=== PATIENT | female | born 1980 | race Hispanic/Latino ===

== ENCOUNTER 2020-03-26 18:12 | Emergency (ER) | payer OTHER ==
--- OUTSIDE RECORDS SUMMARY | 2020-03-26 18:15 | XMS REPORT ---
:1980 Author Organization [facility] t Address [address] [place] [address] Care Team Providers Name Role Phone GENERAL Attending Clinician Unavailable Problems Condition Condition Condition Status Onset Resolution Last Treating Co mments Source Name Details Category Date Date Treatment Clinician Date S/P S/P Problem Active [facility] laparoscop laparoscop [id number] ity of ic ic [place] appendecto appendecto Ph ysici my my ans Allergies, Adverse Reactions, Alerts This patient has no known allergies or adverse reactions. Social History Smoking Status Start Date Stop Date Source Never smoker [facility] Medications This patient has no known medications. Vital Signs Vital Name Observation Time Observation Value Comments Source BP Systolic 2018-10-23 14:04:00 105 mm[Hg] [facility] Physician s BP Diastolic 2018-10-23 14:04:00 75 mm[Hg] [facility] Physician s Height 2018-10-23 14:04:00 65 [in_us] [facility] Physician s Weight 2018-10-23 14:04:00 147 [lb_av] [facility] Physician s Body Mass Index 2018-10-23 14:04:00 24.46 kg/m2 Unive rsity of Calculated [place] Physician s Temperature 2018-10-23 14:04:00 98.2 [degF] [facility] Physician s Heart Rate 2018-10-23 14:04:00 81 /min [facility] Physician s Procedures This patient has no known procedures. Encounters Start End Encounter Admission Attending Care Care Encounter Source Date/Time Date/Time Type Type Clinicians Facility Department ID 2019-04-07 2019-04-07 Emergency E [facility] [address] [facility] 13:34:00 13:34:00 2018-10-23 2018-10-23 Appointmen GENERAL, UTP General [id number] 91 Univers 14:00:00 14:00:00 t; SERVICE Surgery ity of [place], [place] SERVICE Physici ans Results This patient has no known results.
--- NOTE | 2020-03-26 22:02 | RAD REPORT ---
EXAM DESCRIPTION: CT - Head Brain Wo Cont - 03/26/2020 9:56 pm CLINICAL HISTORY: HEADACHE Headache, drowsiness COMPARISON: No comparisons TECHNIQUE: All CT scans are performed using dose optimization technique as appropriate and may inclu de automated exposure control or mA/KV adjustment according to patient size. FINDINGS: No intracranial hemorrhage, hydrocephalus or extra-axial fluid collection.No areas of brai n edema or evidence of midline shift. The paranasal sinuses and mastoids are clear. The calvarium is intact. IMPRESSION: No acute intracranial abnormality.
[2020-03-26] MEDS ORDERED: MORPHINE 4 MG/ML SYR ONE (22:03)
[2020-03-26] MEDS ORDERED: ONDANSETRON 4 MG (ODT) TAB ONE (22:04)
[2020-03-26] MEDS ORDERED: LIDOCAINE VISCOUS 2% SOLN 15 ML UDC ONE (22:32)
--- NOTE | 2020-03-26 23:19 | ER ---
Nurse's Notes [facility] Name: Kelly Phelps Age: 39 yrs Sex: Female : 1980 Arrival Date: 03/26/2020 Time: 18:15 Bed 17 Private MD: Diagnosis: Scalp Mass Presentation: 03/26 18:27 Chief complaint: Patient states: Bump to left scalp area for 4 years. States it got ll1 painful and tender yesterday. No fever. No drainage. Coronavirus screen: Proceed with normal triage. Patient denies a cough. Patient denies shortness of breath or difficulty breathing. Patient denies measured and/or subjective temperature greater than 100.4F prior to today's visit. Patient denies travel on a cruise ship or to a country the [facility] currently lists as an affected area. Patient denies contact with known and/or suspected case of COVID-19. Ebola Screen: Patient denies travel to an Ebola-affected area in the 21 days before illness onset. Initial Sepsis Screen: Does the patient meet any 2 criteria? No. Patient's initial sepsis screen is negative. Does the patient have a suspected source of infection? No. Patient's initial sepsis screen is negative. Risk Assessment: Do you want to hurt yourself or someone else? Patient reports no desire to harm self or others. Onset of symptoms was March 25, 2020. 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 - Social history:: Smoking status: Patient denies any tobacco usage or history of. Patient/guardian denies using alcohol, street drugs, tobacco products. Screenin:36 Abuse screen: Denies threats or abuse. Nutritional screening: No deficits noted. ll1 Tuberculosis screening: No symptoms or risk factors identified. Fall Risk None identified. Total Nayak Fall Scale indicates No Risk (0-24 pts). Assessment: 22:34 General: Appears uncomfortable, Behavior is calm, cooperative. Pain: Complains of pain ll1 in scalp Pain Quality of pain is described as aching, throbbing, Pain began 2-3 days ago. Is continuous. Neuro: No deficits noted. Cardiovascular: No deficits noted. Respiratory: No deficits noted. GI: No deficits noted. Derm: Abscess located on left scalp is dime sized, has no drainage, is red, is raised, Reports pain that is 8 out of 10 on a pain scale. 23:34 Reassessment: Patient appears in no apparent distress at this time. No changes from 1 previously documented assessment. Patient and/or family updated on plan of care and expected duration. Pain level reassessed. Patient is alert, oriented x 3, equal unlabored respirations, skin warm/dry/pink. Vital Signs: 18:27 BP 123 / 85; Pulse 76; Resp 17; Temp 98.8; Pulse Ox 98% ; Weight 68.04 kg; Height 5 ft. ll1 6 in. (167.64 cm); Pain 10/10; 23:34 BP 103 / 64; Pulse 71; Resp 17; Pulse Ox 100% ; Pain 5/10; ll1 18:27 Body Mass Index 24.21 (68.04 kg, 167.64 cm) ll1 ED Course: 18:15 Patient arrived in ED. fj1 18:29 Triage completed. ll1 18:30 Arm band placed on Patient notified of wait time. ll1 21:09 Grover Caballero PA is PHCP. jmm 21:09 Donald Ulloa MD is Attending Physician. jmm 21:55 CT completed. Patient tolerated procedure well. Patient moved back from CT. mw3 21:56 CT Head Brain wo Cont In Process Unspecified. EDMS 22:10 Report received from Yady Villatoro. ll1 22:26 Glenis Brooks, RAYSHAWN is Primary Nurse. ll1 22:36 Patient has correct armband on for positive identification. Bed in low position. Call 1 light in reach. Side rails up X 1. 23:35 No provider procedures requiring assistance completed. Patient did not have IV access ll1 during this emergency room visit. Administered Medications: 22:02 Drug: morphine 4 mg {Note: RASS 1.} Route: IM; Site: left ventrogluteal; 22:32 Follow up: Response: No adverse reaction; RASS: Alert and Calm (0) ll1 22:02 Drug: Ondansetron (Zofran) 4 mg Route: PO; 22:32 Follow up: Response: No adverse reaction; RASS: Alert and Calm (0) [facility] 22:31 Drug: Viscous Lidocaine Liquid (4 %) 10 ml {Note: Applied to scalp wound..} Route: ll1 Mucous Membrane; 23:08 Follow up: Response: No adverse reaction; RASS: Alert and Calm (0) 1 Outcome: 23:18 Discharge ordered by . kory 23:35 Discharged to home via wheelchair, with family. 1 23:35 Condition: stable 23:35 Discharge instructions given to patient, Instructed on discharge instructions, follow up and referral plans. no drinking with medication, no driving heavy equipment, medication usage, Demonstrated understanding of instructions, follow-up care, medications, Prescriptions given X 1. 23:36 Patient left the ED. 1 Signatures: Dispatcher [employer] EDMS Grover Caballero PA PA jmm Willis, Michelle mw3 Garrett Love fj1 Yady Villatoro RN RN ah Lewis, Lynsay, RN RN [facility] Corrections: (The following items were deleted from the chart) 23:09 22:34 Report received from Yady Villatoro [place] [id number]
--- NOTE | 2020-03-26 23:19 | EDPHYS ---
Physician Documentation [facility] Name: Kelly Phelps Age: 39 yrs Sex: Female : 1980 Arrival Date: 03/26/2020 Time: 18:15 Bed 17 Private MD: ED Physician Donald Ulloa HPI: 03/26 21:19 This 39 yrs old Female presents to ER via Ambulatory with complaints of jmm PAINFUL LUMP ON HEAD, DISORIENTED. 21:19 Onset: The symptoms/episode began/occurred gradually, 5 year(s) ago. Possible cause(s): jmm unknown. This is a 39 year old female with a history of RA that presents to the ED with complaints of scalp pain and swelling worsening over the past 3 days. Patient states she has had a mass on her scalp for approx 5 years. Denies drainage, discharge or fever. . 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 - Social history:: Smoking status: Patient denies any tobacco usage or history of. Patient/guardian denies using alcohol, street drugs, tobacco products. ROS: 21:19 Constitutional: Negative for fever, chills, and weight loss, Cardiovascular: Negative jmm for chest pain, palpitations, and edema, Respiratory: Negative for shortness of breath, cough, wheezing, and pleuritic chest pain, Abdomen/GI: Negative for abdominal pain, nausea, vomiting, diarrhea, and constipation. 21:19 Skin: Positive for swelling. 21:19 All other systems are negative. Exam: 21:19 Constitutional: This is a well developed, well nourished patient who is awake, alert, jmm and in no acute distress. 21:19 Eyes: EOMI, no conjunctival erythema appreciated ENT: Moist Mucus Membranes Neck: Trachea midline, Supple Chest/axilla: Normal chest wall appearance and motion. Cardiovascular: Regular rate and rhythm. No edema appreciated Respiratory: Normal respirations, no respiratory distress appreciated Abdomen/GI: Non distended, soft Back: Normal ROM Skin: General appearance color normal MS/ Extremity: Moves all extremities, no obvious deformities appreciated, no edema noted to the lower extremities Neuro: Awake and alert, normal gait Psych: Behavior is normal, Mood is normal, Patient is cooperative and pleasant 21:19 Head/face: cyst like mass noted to the left side of the scalp, no erythema or drainage appreciated, ttp. Vital Signs: 18:27 BP 123 / 85; Pulse 76; Resp 17; Temp 98.8; Pulse Ox 98% ; Weight 68.04 kg; Height 5 ft. ll1 6 in. (167.64 cm); Pain 10/10; 23:34 BP 103 / 64; Pulse 71; Resp 17; Pulse Ox 100% ; Pain 5/10; ll1 18:27 Body Mass Index 24.21 (68.04 kg, 167.64 cm) ll1 MDM: 21:19 Patient medically screened. mike 23:17 Data reviewed: vital signs, nurses notes. Counseling: I had a detailed discussion with kory the patient and/or guardian regarding: the historical points, exam findings, and any diagnostic results supporting the discharge/admit diagnosis, the need for outpatient follow up, to return to the emergency department if symptoms worsen or persist or if there are any questions or concerns that arise at home. ED course: Most likely cyst. Advised to follow up with dr. navarro for reevaluation. patient is otherwise given strict return precautions. patient understood and agrees with the plan of care. . 03/26 21:44 Order name: CT Head Brain wo Cont; Complete Time: 22:07 mckenzie Administered Medications: 22:02 Drug: morphine 4 mg {Note: RASS 1.} Route: IM; Site: left ventrogluteal; 22:32 Follow up: Response: No adverse reaction; RASS: Alert and Calm (0) 1 22:02 Drug: Ondansetron (Zofran) 4 mg Route: PO; 22:32 Follow up: Response: No adverse reaction; RASS: Alert and Calm (0) 1 22:31 Drug: Viscous Lidocaine Liquid (4 %) 10 ml {Note: Applied to scalp wound..} Route: ll1 Mucous Membrane; 23:08 Follow up: Response: No adverse reaction; RASS: Alert and Calm (0) ll1 Disposition: 03/27 07:41 Co-signature as Attending Physician, Donald Ulloa MD I agree with the assessment and [facility] plan of care. Disposition: 03/26/20 23:18 Discharged to Home. Impression: Scalp Mass. - Condition is Stable. - Prescriptions for Tylenol- Codeine #3 300-30 mg Oral Tablet - take 1 tablet by ORAL route every 6 hours As needed; 12 tablet. - Medication Reconciliation Form, Thank You Letter, Antibiotic Education, Prescription Opioid Use form. - Follow up: Private Physician; When: 2 - 3 days; Reason: Recheck today's complaints, Continuance of care, Re-evaluation by your physician. Signatures: Dispatcher [employer] EDDonald Balderas MD MD cha Mickail, Joel, PA PA jmm Harris, Amy, RN RN Glenis Todd RN RN ll1 Corrections: (The following items were deleted from the chart) 03/26 23:36 23:18 03/26/2020 23:18 Discharged to Home. Impression: Scalp Mass. Condition is Stable. ll1 Forms are Medication Reconciliation Form, Thank You Letter, Antibiotic Education, Prescription Opioid Use. Follow up: Private Physician; When: 2 - 3 days; Reason: Recheck today's complaints, Continuance of care, Re-evaluation by your physician. kory
[2020-03-26 23:46] VITALS: TEMP 98.8
[2020-03-26 23:51] VITALS: BP 103/64; O2SAT 100
== END 2020-03-26 23:36 | disposition home or self-care (01) ==
LOC: ER 18:12
DX: R22.0 Localized swelling, mass and lump, head (principal); Z98.82 Breast implant status
CPT/HCPCS: 70450; 96372; 99284

== ENCOUNTER 2020-04-01 11:16 | Day surgery (SDC) | payer OTHER ==
[2020-03-30 16:19] LABS: Absolute Lymphocytes (CBC) 1.7 K/uL (0.7-4.9); Basophils % 0.4 % (0-1.3); Hematocrit 35.5 % (36.0-45.0); Lymphocytes % 29.5 % (15.3-44.8); MPV 9.6 fL (7.6-11.3); RBC Red Blood Cell Count 3.74 M/uL (3.86-4.86)
[2020-04-01] MEDS ORDERED: CEFAZOLIN/SWI 1gm 1 GM/10 ML SYR ONE (11:43)
[2020-04-01] MEDS ORDERED: Ringers Lactate 1,000 ML IV ONE (11:43)
--- OUTSIDE RECORDS SUMMARY | 2020-04-01 11:47 | XMS REPORT ---
:1980 Author Organization [facility] t Address [address] [place] [address] Care Team Providers Name Role Phone GENERAL Attending Clinician Unavailable Problems Condition Condition Condition Status Onset Resolution Last Treating Co mments Source Name Details Category Date Date Treatment Clinician Date S/P S/P Problem Active [facility] laparoscop laparoscop [id number] ity of ic ic [place] appendecto appendecto Ph ysici my my ans Allergies, Adverse Reactions, Alerts This patient has no known allergies or adverse reactions. Social History Smoking Status Start Date Stop Date Source Never smoker [facility] Medications This patient has no known medications. Vital Signs Vital Name Observation Time Observation Value Comments Source BP Systolic 2018-10-23 14:04:00 105 mm[Hg[facility] BP Diastolic 2018-10-23 14:04:00 75 mm[Hg] [facility] Physician s Height 2018-10-23 14:04:00 65 [in_us] [facility] Weight 2018-10-23 14:04:00 147 [lb_av] [facility] Physician s Body Mass Index 2018-10-23 14:04:00 24.46 kg/m2 Unive rsity of Calculated [place] Physician s Temperature 2018-10-23 14:04:00 98.2 [degF] [facility] Physician s Heart Rate 2018-10-23 14:04:00 81 /min [facility] Physician s Procedures This patient has no known procedures. Encounters Start End Encounter Admission Attending Care Care Encounter Source Date/Time Date/Time Type Type Clinicians Facility Department ID 2019-04-07 2019-04-07 Emergency E [facility] [address] [facility] 13:34:00 13:34:00 2018-10-23 2018-10-23 Appointmen GENERAL, [facility]TP General [id number] 91 Univers 14:00:00 14:00:00 t; SERVICE Surgery [facility] of [place], [place] SERVICE Physici ans Results This patient has no known results.
[2020-04-01] MEDS ORDERED: propofoL 200 MG/20 ML VIAL IV ONE (11:49)
[2020-04-01] MEDS ORDERED: LIDOCAINE 2% MPF 5 ML VIAL ONE (11:49)
[2020-04-01] MEDS ORDERED: dexAMETHasone 10 MG/ML VIAL ONE (11:49)
[2020-04-01] MEDS ORDERED: FENTANYL CITR 100 MCG/2 ML ONE (11:49)
[2020-04-01] MEDS ORDERED: MIDAZOLAM HCL 2 MG/2 ML INJ ONE (11:51)
[2020-04-01] MEDS ORDERED: LIDOCAINE 1% MPF 30 ML VIAL ONE (12:32)
[2020-04-01] MEDS ORDERED: LIDOCAINE 1% W/EPI 1:100,000 MDV 50 ML VIAL ONE (12:32)
[2020-04-01] MEDS ORDERED: BUPIVACA 0.5%/EPI 0.0005%/PF 30 ML VIAL SQ ONE ×2 (13:12)
[2020-04-01] MEDS ORDERED: KETOROLAC 30 MG/ML INJ ONE (13:16)
--- NOTE | 2020-04-01 13:34 | P.BOP ---
Preoperative diagnosis: infected tender scalp mass Postoperative diagnosis: same Primary procedure: Excisional biopsy of infected tender scalp mass 3x3cm Estimated blood loss: <10cc Specimen: mass Findings: mass Anesthesia: General Transferred to: Recovery Room Condition: Good
[2020-04-01] MEDS: HYDROMORPHONE HCL 1 MG/ML INJ ONE ×2 (13:51→13:56)
[2020-04-01] MEDS ORDERED: ONDANSETRON 4 MG/2 ML VIAL ONE (14:00)
[2020-04-01] MEDS ORDERED: CODEINE 30MG/APAP 300MG TAB ONE (15:06)
[2020-04-01 15:35] VITALS: BP 117/69; TEMP 98.6; O2SAT 98
--- NOTE | 2020-04-01 22:22 | DS ---
Date of Discharge: 04/01/2020 Diagnosis: Infected scalp mass. Procedure: Excisional biopsy of infected scalp mass. Disposition: Home. Activity: As tolerated. No heavy lifting. Discharge Instructions: Followup in my office in 1 week. Call for appointment at [phone]. Keep ar ea dry for 48 hours, then may shower. Then apply triple antibiotic over the area. Discharge Medications: Include Bactrim DS p.o. b.i.d., Tylenol No.3 q.4 hours p.r.n. pain. BEBETO/TRINA Voice ID: [id number] Report ID: [id number]
--- NOTE | 2020-04-01 22:22 | OP ---
Date of Procedure: 04/01/2020 Surgeon: Isaac Deshpande MD Preoperative Diagnosis: Infected tender scalp mass. Postoperative Diagnosis: Infected tender scalp mass. Procedure: Excisional biopsy of infected tender scalp mass, 3 x 3 cm. Anesthesia: General plus local. Findings: Mass. Indications: This is the case of a 39-year-old patient, comes to us with a scalp mass, te nder erythema, increasing in size. She wants it excised. She understands the benefits, alternatives , and risks of excision, which include, but not limited to infection, bleeding, damage to adjacent st ructures, anesthesia complications, nonhealing wound, GA, and even . She also understands this may not relieve any symptoms, she might need more than one surgical intervention. She understands sh e may require wound care. She is on antibiotics at this moment. . Patient understands th e chance also of alopecia. She signed a consent. Description Of Procedure: Patient was brought to the operating room, placed in supine position. Ane sthesia was done without complication. The area of concern was previously marked by me and the patie nt in the holding room. A time-out was called. The scalp area was prepped and draped in usual steri le fashion. A wedge incision was made in the skin to include the tissue that is draining and also th e mass itself does not involve the bone. The mass was completely excised from the subcuta neous tissue and the area was irrigated and then we proceeded to close this with interrupted __ nylon, multiple sites after profuse irrigation of local anesthetic. The patient tolerated the procedure well. Patient was sent to the Recovery in stable condition. BEBETO/TRINA Voice ID: [id number] Report ID: [id number]
== END 2020-04-01 15:50 | disposition home or self-care (01) ==
LOC: PRE 11:16
PROVIDERS: ATTEND Surgery
PROC: 0JB00ZX Excision of Scalp Subcutaneous Tissue and Fascia, Open Approach, Diagnostic (ICD-10-PCS; principal; 2020-04-01 12:30)
DX: L72.11 Pilar cyst (principal)
CPT/HCPCS: 11423; 85025; 80048; 36415; 81025; 88304; J2704; J2250; J3010; J1100; J1170; J0690; J7120; J2405; 88305

== ENCOUNTER 2020-05-18 06:28 | Day surgery (SDC) | payer OTHER ==
[2020-05-12 14:58] LABS: Basophils % 0.6 % (0-1.3); Hematocrit 39.3 % (36.0-45.0); Lymphocytes % 41.3 % (15.3-44.8); RBC Red Blood Cell Count 4.14 M/uL (3.86-4.86)
[2020-05-17 15:56] LABS: Urine Appearance CLEAR; Urine Bilirubin NEGATIVE (NEG); Urine Blood NEGATIVE (NEG); Urine Color YELLOW; Urine Glucose NEGATIVE (NEG); Urine Protein NEGATIVE (NEG); Urine Specific Gravity 1.015 (1.005-1.030); Urine Urobilinogen 0.2 mg/dL (0.2-1.0); Urine pH 7.5 (5.0-7.0)
[2020-05-17 15:57] LABS: Urine Microscopic Reflex NO UMIC
[2020-05-17 16:16] LABS: ALT/SGPT 38 U/L (12-78); AST/SGOT 16 U/L (15-37); Albumin 3.9 g/dL (3.4-5.0); Alkaline Phosphatase 45 U/L (45-117); Amylase 51 U/L (25-115); BUN Blood Urea Nitrogen 12 mg/dL (7-18); Bicarbonate 29 mmol/L (21-32); Bilirubin Direct 0.1 mg/dL (0-0.2); Bilirubin Total 0.4 mg/dL (0.2-1.0); Glucose Level 77 mg/dL (74-106); Lipase 117 U/L (73-393); Potassium 3.5 mmol/L (3.5-5.1); Protein, Total 7.3 g/dL (6.4-8.2); Sodium Level 141 mmol/L (136-145)
--- NOTE | 2020-05-17 16:16 | RAD REPORT ---
EXAM DESCRIPTION: Bryson Tucker (2 Views)05/17/2020 3:27 pm CLINICAL HISTORY: Preop for hysterectomy COMPARISON: None FINDINGS: The lungs appear clear of acute infiltrate. The heart is normal size IMPRESSION: No acute abnormalities displayed
--- OUTSIDE RECORDS SUMMARY | 2020-05-18 06:31 | XMS REPORT | Continuity of Care Document ---
:1980 Author Organization [facility] t Address [address] [place] [address] Care Team Providers Name Role Phone GENERAL Attending Clinician Unavailable Problems Condition Condition Condition Status Onset Resolution Last Treating Co mments Source Name Details Category Date Date Treatment Clinician Date S/P S/P Problem Active [facility] laparoscop laparoscop [id number] ity of ic ic [place] appendecto appendecto Ph ysici my my ans Allergies, Adverse Reactions, Alerts This patient has no known allergies or adverse reactions. Social History Smoking Status Start Date Stop Date Source Never smoker [facility] Medications This patient has no known medications. Vital Signs Vital Name Observation Time Observation Value Comments Source BP Systolic 2018-10-23 14:04:00 105 mm[Hg] Universi ty [facility] Physician s BP Diastolic 2018-10-23 14:04:00 75 mm[Hg] [facility]i ty [facility] Physician s Height 2018-10-23 14:04:00 65 [in_us] Universi ty [facility] Physician s Weight 2018-10-23 14:04:00 147 [lb_av] Universi ty [facility] Physician s Body Mass Index 2018-10-23 14:04:00 24.46 kg/m2 Unive rsity of Calculated [place] Physician s Temperature 2018-10-23 14:04:00 98.2 [degF] Universi ty [facility] Physician s Heart Rate 2018-10-23 14:04:00 81 /min [facility] Phys[facility] s Procedures This patient has no known procedures. Encounters Start End Encounter Admission Attending Care Care Encounter Source Date/Time Date/Time Type Type Clinicians Facility Department ID 2019-04-07 2019-04-07 Emergency E [facility] [address] [facility] 13:34:00 13:34:00 2018-10-23 2018-10-23 Appointmen GENERAL, [facility] General [id number] 91 [facility] 14:00:00 14:00:00 t; SERVICE Surgery ity of [place], [place] SERVICE Physici ans Results This patient has no known results.
[2020-05-18] MEDS ORDERED: Ringers Lactate 1,000 ML IV ONE ×4 (07:05→13:27)
[2020-05-18] MEDS ORDERED: SCOPOLAMINE HYDROBROMIDE PATCH TD ONE (07:05)
[2020-05-18] MEDS ORDERED: BUPIVACAINE 0.25% PF 30 ML VIAL ONE (07:07)
[2020-05-18] MEDS ORDERED: dexAMETHasone 10 MG/ML VIAL ONE (07:20)
[2020-05-18] MEDS ORDERED: ROCURONIUM 50 MG/5 ML VIAL IV ONE (07:20)
[2020-05-18] MEDS ORDERED: propofoL 200 MG/20 ML VIAL IV ONE (07:20)
[2020-05-18] MEDS ORDERED: ONDANSETRON 4 MG/2 ML VIAL ONE ×2 (07:21→11:56)
[2020-05-18] MEDS ORDERED: LIDOCAINE 2% MPF 5 ML VIAL ONE (07:21)
[2020-05-18] MEDS ORDERED: MIDAZOLAM HCL 2 MG/2 ML INJ ONE (07:21)
[2020-05-18] MEDS ORDERED: FENTANYL CITR 250 MCG/5 ML ONE (07:21)
[2020-05-18] MEDS: CEFAZOLIN/SWI 2gm 2 GM/20 ML SYR ONE ×3 (07:30→08:10)
--- NOTE | 2020-05-18 07:46 | EKG ---
Test Date: 2020-05-17 Test Time: 15:35:33 [place]room[place] Thresher: MEASUREMENT RESULTS: Intervals: Rate: 72 NE: 150 QRSD: 72 QT: 374 QTc: 409 [place]: P: 51 NE: 150 QRS: 76 T: 76 INTERPRETIVE STATEMENTS: Normal sinus rhythm with sinus arrhythmia Normal ECG No previous ECG available for comparison Electronically Signed On 05-18-20 07:44:32 CDT by Jakub Rivero
[2020-05-18] MEDS ORDERED: CEFOXITIN/SWI 1gm 1 GM/10 ML SYR ONE (08:01)
--- NOTE | 2020-05-18 08:54 | P.BOP ---
Preoperative diagnosis: RLQ abdominal pain Postoperative diagnosis: same Primary procedure: Diagnostic laparoscopy Estimated blood loss: <5cc Specimen: none Findings: see dictation Anesthesia: General Complications: None Transferred to: Other (Pt remained in the OR for Dr Lee gynecological procedure) Condition: Good
[2020-05-18] MEDS ORDERED: KETOROLAC 30 MG/ML INJ ONE (10:51)
[2020-05-18] MEDS ORDERED: MORPHINE 10 MG/ML VIAL ONE (11:04)
--- NOTE | 2020-05-18 11:15 | OP ---
Date of Procedure: 05/18/2020 Surgeon: Isaac Deshpande MD Preoperative Diagnosis: Right lower quadrant and pelvic pain. Postoperative Diagnosis: Right lower quadrant and pelvic pain. Procedure Performed: Diagnostic laparoscopy. Anesthesia: General plus local. Findings: See dictation. Indications: This is a case of a 39-year-old patient with right pelvis and also right lower quadrant abdominal pain. There are multiple imaging done, unable to find the etiology of her pain and causin g apparent discomfort. She wants that evaluated. So she was sent to my office for evaluation. She has previous appendectomy in the past. She has her own slurry control tender and the pain cannot be det ermined with the blood work or imaging. So diagnostic lap was requested. At the same time, Dr. 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 So from mild surgical standpoint it was diagnostic laparoscopy, possible lysis of adhesions, possible hernia repair with benefits, alternatives, and risks fully explained to the p atient, which include, but not limited to infection, bleeding, damage to adjacent structures, anesthe marta complication, negative exploration, GA and . She also understands that this may not relieve her symptoms. She might need more than one surgical intervention. She understood, signed a consent . She understands we will be doing 2 different procedures. Me as a surgeon for diagnostic lap. Dr. Lee as a surgeon for her gynecological procedure. So she has to follow with her as an outpatie nt. Procedure In Detail: For my part, the patient was brought to the operating room, placed in supine po sition. Anesthesia was done without complication. Time-out was called. Abdomen was prepped and dylan ped in sterile fashion. Marcaine 0.5% was injected for local anesthetic followed by sharp incision o f the skin in the infraumbilical region. Incision was carried down to fascia, which was opened under direct vision. Vicryl #1 was placed inside the fascia. Bandar trocar was carefully introduced. Pn eumoperitoneum was obtained. After that, I placed a 5 mm trocar on the left lower quadrant using dir ect visualization with no injuries. We were able to perform diagnostic lap. We looked at the area o f the ascending, transverse, descending colon with no masses seen. No extraluminal masses were seen. No inflammation was seen. The area of the small bowel, which shows no extraluminal masses. Liver soft, gallbladder soft. Stomach soft and depressible. In the area of the pelvis and the inguinal re gion, no inguinal hernia. The area of the previous appendectomy looks clear with no major scar tissu e present and no masses palpated and noting in the right lower quadrant abdominal wall that explained her abdominal pain. At that moment, we concluded our diagnostic laparoscopy. We are going to leave this patient in the hands of Dr. Lee who will be putting the rest of the trocars on her and per form a possible hysterectomy. The patient at this moment tolerated procedure well with no complicati ons. The patient will remain in OR and I will scrub out of the procedure. URBAN Voice ID: [id number] Report ID: [id number]
[2020-05-18] MEDS: HYDROMORPHONE HCL 2 MG/ML inj ONE ×3 (11:55→12:20)
[2020-05-18] MEDS: MEPERIDINE HCL 25 MG/ML SYR ONE ×2 (12:05→12:15)
[2020-05-18 13:07] VITALS: TEMP 98.1; O2SAT 99
[2020-05-18] MEDS ORDERED: HYDROCODONE/APAP 5/325 MG TAB ONE (13:31)
[2020-05-18 14:17] VITALS: BP 116/78
--- NOTE | 2020-06-19 23:11 | OP ---
Date of Procedure: 05/18/2020 Surgeon: Micaela Lee MD Customer Service Receptionist: Irais Karimi. Preoperative Diagnosis: Pelvic pain. Postoperative Diagnoses: Pelvic pain, extensive endometriosis. Procedures Performed: Total laparoscopic hysterectomy, bilateral salpingectomy, right oophorectomy, endometriosis excision, right ureterolysis, cystoscopy, and left ovariolysis. Anesthesia: General endotracheal. Estimated Blood Loss: Minimal. Urine Output: 300. Findings: Extensive left periureteric endometriosis. Both ureteric orifices normal when inspected a t cysto. Specimens: Left uterosacral ligament endometriosis, right periureteric endometriosis, and uterus wit h right ovary and bilateral tubes, and left round ligament endometriosis. Procedure Note: After informed consent was verified, the patient was taken back to OR and placed in supine fashion on the operating table. After general anesthesia was given, she was placed in dorsal lithotomy position and pelvic exam was performed. 2 g of Ancef were given and SCDs were started. Th e patient was examined. Abdomen, vulva, vagina, and perineum prepped and draped in a sterile fashion . Crisostomo was placed to drain the bladder and large VCare was introduced into the uterus and left in p lace. This area was then draped. A 1 cm infraumbilical incision was made with a scalpel using the o pen laparoscopy technique. Fascia was then incised, tagged with 0 Vicryl sutures. Peritoneum was en tered sharply. S-retractors were placed. Bandar introduced. Site of entry insufflated and site of entry checked and unremarkable. Lower abdominal surfaces, liver, and upper abdominal surface was com pletely unremarkable excepting 1 perihepatic adhesion at the dome of the right lobe of the liver. Co pablo normal. Appendix normal. On examination, the gallbladder was normal as well. On examination of the pelvic cavity, there was right ovarian endometriosis adhering to the right ureter. Then, there was left round ligament endometriosis and left uterosacral ligament endometriosis. Once all these we re well visualized, there were periovarian adhesions of the left ovary to the lateral wall and the en dometriosis. So, all these adhesions once they were well visualized, 10 suprapubic two right and lef t lower quadrant ports were placed directly under vision. The bowel was retracted with a 3-0 Monocry l suture and pulled out through the left upper quadrant using a Deshawn-Jackie needle. Then, after inspecting the entire pelvic cavity, endometrial excision was first conducted. The left ovary was se parated from the periovarian adhesions and the endometriosis. Then, the endometriosis was excised wi th the help of the monopolar hook blade. The left uterosacral and all the implants were removed, barajas ded out. Then, attention was directed to the right side. The ovary was by sharp dissectio n as well as with LigaSure from the endometriotic implants. These implants were alongside the ureter so ureterolysis had to be performed so peritoneum was opened lateral to the ureter parallel to it wi th monopolar needle. Then, an incision was extended lateral to the ureter about to the level of the ureteric tunnel. Then medially, the ureter was dissected away from the medial leaf of the broad liga ment, and once this was done, the implants were from the underlying ureter and carefully th is was dissected with the help of the bipolar LigaSure. These implants were handed out. The left ro und ligament implant was also visualized and this was excised and handed out. Then, hysterectomy was performed in the usual fashion using the LigaSure taking down the left utero-ovarian ligament, mesos alpinx, tube. Round ligament and broad ligament were all taken down and skeletonized the vessels. T he bladder flap was raised anteriorly to connect all the way to the opposite side. Then, dissection was performed on the opposite side taking down the utero-ovarian ligament, mesosalpinx, tube, and the round ligament. The broad ligament was opened up and anterior-posterior leaves were dissected separ ately, anterior connecting the bladder flap and posterior going to the uterosacral broad ligament adriana ing down with the help of the LigaSure. Once the vessels were skeletonized on this side as well, pre vesical area was cleaned up to enter the vesicovaginal space with a monopolar hook blade and this was pushed inferiorly at least 1.5 cm. The vessels were taken down both sides with bipolar cautery and LigaSure, first on the right side, th en taken down with the LigaSure. Then, the cardinal ligaments were taken down with the help of the b ipolar basket tip as well as LigaSure. Once these were taken down, opposite side similar dissection was performed and the vaginal cuff was well visualized. Circumferential colpotomy was performed with a monopolar hook blade and specimen was pulled out through the vagina. Then, the right ovary was re moved, the left ovary was left free, and both tubes were removed. All specimens were retrieved. Tho rough irrigation and suction were performed around here. There was no electrical, mechanical, or the rmal injury to the ureters on both sides, especially after the right ureterolysis. There was a mid p elvic ureter all the way to the ureteric tunnel that had to be dissected. Thorough irrigation and suction were performed and sutures were placed, one single interrupted suture 0 PDS was taken. Simple angled stitches and 3 [id number] in the center. Thorough irrigation a nd suction were performed. All the trocars were removed under direct vision. Gas was desufflated in a closed fashion and Bandar was removed as well. Site of entry for all the port sites was injected entry and exit with 0.25% Marcaine. Also, took out left upper quadrant, retraction, 3-0 [address] sut ure to the bowel, and there was no evidence of bleeding or hematoma on the epiploicae. The endometri osis implants were not just single. There were multiple of them in each side where they were dissect ed. Cystoscopy was performed after the Crisostomo and sponge for retraction was removed. There was an excelle nt visualization of the entire bladder, no evidence of any trauma, both ureteric orifices were well v isualized, and there were strong jets of urine from both. These were safeguarded. The bladder was d rained and Crisostomo was removed. Crisostomo was left out. Instrument, needle, and sponge counts were correc t at the end of the case. The patient tolerated the procedure well. She has a followup with me in 1 week. MARIS/TRINA Voice ID: [id number] Report ID: [id number]
== END 2020-05-18 14:55 | disposition home or self-care (01) ==
LOC: OR 06:28
PROVIDERS: ATTEND Obstetrics & Gynecology
PROC: 0UT04ZZ Resection of Right Ovary, Percutaneous Endoscopic Approach (ICD-10-PCS; 2020-05-18)
PROC: 0UT74ZZ Resection of Bilateral Fallopian Tubes, Percutaneous Endoscopic Approach (ICD-10-PCS; 2020-05-18)
PROC: 0DBW4ZZ Excision of Peritoneum, Percutaneous Endoscopic Approach (ICD-10-PCS; 2020-05-18)
PROC: 0UT94ZZ Resection of Uterus, Percutaneous Endoscopic Approach (ICD-10-PCS; principal; 2020-05-18 07:30)
DX: N80.3 Endometriosis of pelvic peritoneum (principal); N80.8 Other endometriosis; N88.8 Other specified noninflammatory disorders of cervix uteri; N72 Inflammatory disease of cervix uteri; D25.2 Subserosal leiomyoma of uterus; N83.01 Follicular cyst of right ovary; N83.8 Other noninflammatory disorders of ovary, fallopian tube and broad ligament; M06.9 Rheumatoid arthritis, unspecified; Z11.59 Encounter for screening for other viral diseases
CPT/HCPCS: 58571; 58662; 93005; 85025; 80048; 36415 ×2; 82150; 84703; 80076; 88305; 88307; 81003; 83690; 71046; U0002; J2704; J2250; J1170; J3010; J1100; J2175; J7120 ×4; J2405 ×2; J0690

== ENCOUNTER 2021-07-20 18:21 | Emergency (ER) | payer OTHER ==
[2021-07-20 20:28] LABS: Urine Blood Trace-intact (Negative); Urine Glucose Negative (Negative); Urine Protein Trace (Negative); Urine Specific Gravity 1.025 (1.005-1.030)
[2021-07-20] MEDS ORDERED: FAMOTIDINE 20 MG/2 ML VIAL IV ONE (20:41)
[2021-07-20] MEDS ORDERED: ONDANSETRON 4 MG/2 ML VIAL ONE (20:41)
--- NOTE | 2021-07-20 20:48 | RAD REPORT ---
EXAM DESCRIPTION: US - Abdomen Exam Limited - 07/20/2021 8:34 pm CLINICAL HISTORY: RUQ abdomen pain COMPARISON: Renal Ultrasound-Complete dated 09/26/2020 FINDINGS: The gallbladder demonstrates no gallstones. No pericholecystic fluid or gallbladder wall t hickening. The common bile duct is normal measuring 2 mm. The liver demonstrates no findings of intrahepatic biliary dilatation. The right kidney is unremarkab le. The kidney measures 10.7 cm. IMPRESSION: Unremarkable examination.
[2021-07-20 20:54] LABS: Absolute Lymphocytes (CBC) 1.9 K/uL (0.7-4.9); Basophils % 0.7 % (0-1.3); Hematocrit 37.2 % (36.0-45.0); Lymphocytes % 34.8 % (15.3-44.8); MPV 9.4 fL (7.6-11.3); RBC Red Blood Cell Count 3.96 M/uL (3.86-4.86)
[2021-07-20 21:03] LABS: ALT/SGPT 24 U/L (12-78); AST/SGOT 10 U/L (15-37); Alkaline Phosphatase 37 U/L (45-117); BUN Blood Urea Nitrogen 13 mg/dL (7-18); Bicarbonate 27 mmol/L (21-32); Bilirubin Direct < 0.1 mg/dL (0-0.2); Bilirubin Total 0.2 mg/dL (0.2-1.0); Glucose Level 97 mg/dL (74-106); Lipase 101 U/L (73-393); Potassium 3.8 mmol/L (3.5-5.1); Sodium Level 141 mmol/L (136-145)
[2021-07-20 21:07] LABS: Urine Specific Gravity/Preg 1.025 (1.005-1.030)
[2021-07-20 21:16] LABS: Urine Bacteria 20-50 /HPF (<20)
--- NOTE | 2021-07-20 22:13 | RAD REPORT ---
EXAM DESCRIPTION: CTAbdomen Pelvis W Contrast - 07/20/2021 9:43 pm CLINICAL HISTORY: . ABD PAIN COMPARISON: Abdomen Pelvis W Contrast dated 10/15/2016 TECHNIQUE: Biphasic CT imaging of the abdomen and pelvis was performed with 100 ml non-ionic IV cont rast. All CT scans are performed using dose optimization technique as appropriate and may include automated exposure control or mA/KV adjustment according to patient size. FINDINGS: Lower chest: No acute abnormality. Bilateral breast prostheses. Liver: No acute abnormality or suspicious lesions. Biliary: No biliary ductal dilatation. Stomach: No significant focal abnormality. Duodenum: No significant focal abnormality. Pancreas: No significant abnormality. Spleen: No significant abnormality. Adrenal: No suspicious lesions. Kidney/ureter: No hydronephrosis. No renal calculi. Retroperitoneum: No retroperitoneal adenopathy. Vascular: No aneurysm. Bowel: No significant focal abnormality. Appendectomy. Peritoneum: No ascites or free air. Small fat containing umbilical hernia. Bladder: Grossly unremarkable. Reproductive: No adnexal masses. Bones: No acute fracture. Other: n/a IMPRESSION: No acute intra-abdominal or pelvic finding. Appendectomy.
[2021-07-20] MEDS ORDERED: NA CHLORIDE 0.9% 1,000 ML ONE (22:19)
--- NOTE | 2021-07-20 22:51 | ER ---
Nurse's Notes [facility] Name: Kelly Phelps Age: 40 yrs Sex: Female : 1980 Arrival Date: 07/20/2021 Time: 18:24 Bed 10 Private MD: Lasha Stoddard Diagnosis: UTI/ Urinary tract infection, site not specified Presentation: 07/20 19:22 Chief complaint: Patient states: right upper quad pain since last night, reports nausea em and a migraine, denies fever. Coronavirus screen: Vaccine status: Patient reports receiving the 2nd dose of the covid vaccine. Ebola Screen: Patient negative for fever greater than or equal to 101.5 degrees Fahrenheit, and additional compatible Ebola Virus Disease symptoms Patient denies exposure to infectious person. Patient denies travel to an Ebola-affected area in the 21 days before illness onset. No symptoms or risks identified at this time. Initial Sepsis Screen: Does the patient meet any 2 criteria? No. Patient's initial sepsis screen is negative. Does the patient have a suspected source of infection? No. Patient's initial sepsis screen is negative. Risk Assessment: Do you want to hurt yourself or someone else? Patient reports no desire to harm self or others. Onset of symptoms was July 20, 2021. 19:22 Method Of Arrival: Ambulatory em 19:22 Acuity: AHSAN 3 em 21:00 Note Pt resting quietly in room with spouse at bedside. Pt states pain 7/10 to RUQ. df1 Nausea is decreased. 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 - Social history:: Smoking status: Patient denies any tobacco usage or history of. Screenin:40 Abuse screen: Denies threats or abuse. Nutritional screening: No deficits noted. vg1 Tuberculosis screening: No symptoms or risk factors identified. Fall Risk No fall in past 12 months (0 pts). No secondary diagnosis (0 pts). IV access (20 points). Ambulatory Aid- None/Bed Rest/Nurse Assist (0 pts). Gait- Normal/Bed Rest/Wheelchair (0 pts) Mental Status- Oriented to own ability (0 pts). Total Nayak Fall Scale indicates No Risk (0-24 pts). Assessment: 19:36 General: Appears in no apparent distress. uncomfortable, Behavior is calm, cooperative. vg1 Pain: Complains of pain in right upper quadrant Pain currently is 7 out of 10 on a pain scale. Quality of pain is described as sharp, Pain began about two weeks ago Noted to be grimacing, guarding. Neuro: Level of Consciousness is awake, alert, obeys commands, Oriented to person, place, time, situation, Reports headache. Cardiovascular: Patient's skin is warm and dry. Respiratory: Airway is patent Respiratory effort is even, unlabored. GI: Abdomen is flat, Last BM was July 19, 2021. Bowel sounds present X 4 quads. Abdomen is tender to palpation in right upper quadrant Reports bloating, constipation, nausea, Pt stated that Dr Stoddard stated Liver enzymes are elevated. Pt states had blood work done about two weeks ago and was suppose to have an US today but was unable to. : No signs and/or symptoms were reported regarding the genitourinary system. EENT: No signs and/or symptoms were reported regarding the EENT system. Derm: Skin is intact, is healthy with good turgor. Musculoskeletal: Circulation, motion, and sensation intact. Vital Signs: 19:22 BP 128 / 83; Pulse 69; Resp 18; Temp 97.6; Pulse Ox 99% on R/A; Weight 68.04 kg; Height em 5 ft. 6 in. (167.64 cm); 19:49 BP 115 / 83; Pulse 73; Resp 16; Pulse Ox 100% on R/A; df1 20:58 BP 107 / 70; Pulse 75; Resp 18; Pulse Ox 100% on R/A; df1 22:32 BP 105 / 72; Pulse 74; Resp 18; Pulse Ox 100% on R/A; df1 19:22 Body Mass Index 24.21 (68.04 kg, 167.64 cm) em ED Course: 18:24 Patient arrived in ED. mr 18:24 Lasha Stoddard DO is Private Physician. mr 19:24 Triage completed. em 19:24 Arm band placed on. em 19:33 Donald Ayers PA is PHCP. cp 19:33 Delvis Camp MD is Attending Physician. cp 19:36 Katherine Fischer, RN is Primary Nurse. vg1 19:40 Patient has correct armband on for positive identification. Call light in reach. vg1 19:40 No provider procedures requiring assistance completed. vg1 20:34 US Abdomen Limited: RUQ/epigastric In Process Unspecified. EDMS 20:45 Urine Microscopic Only Sent. df1 20:46 Inserted saline lock: 20 gauge in right antecubital area, using aseptic technique. df1 21:43 CT Abd/Pelvis - IV Contrast Only In Process Unspecified. EDMS 22:56 Urine Culture Sent. df1 23:08 IV discontinued, intact. df1 Administered Medications: 20:45 Drug: Zofran (Ondansetron) 4 mg Route: IVP; Site: right antecubital; df1 21:02 Follow up: Response: No adverse reaction; Nausea is decreased df1 20:45 Drug: Pepcid (famotidine) 20 mg Route: IVP; Site: right antecubital; df1 21:02 Follow up: Response: No adverse reaction df1 22:25 Drug: NS 0.9% 1000 ml Route: IV; Rate: 1 bolus; Site: right antecubital; df1 23:09 Follow up: Response: No adverse reaction; IV Intake: 1000ml df1 22:55 Drug: Rocephin (cefTRIAXone) 1 grams Route: IV; Rate: calculated rate; Site: right df1 antecubital; 23:08 Follow up: Response: No adverse reaction; IV Intake: 10ml df1 Intake: 23:08 IV: 10ml; Total: 10ml. df1 23:09 IV: 1000ml; Total: 1010ml. df1 Outcome: 22:51 Discharge ordered by . cp 23:07 Discharged to home df1 23:07 Condition: good 23:07 Discharge instructions given to patient, significant other, Instructed on discharge instructions, follow up and referral plans. medication usage, Demonstrated understanding of instructions, follow-up care, medications, Prescriptions given X 3. 23:09 Patient left the ED. df1 Signatures: Dispatcher [employer] EDMD Ronald Humaira black MixLeonard, RN Donald Flanagan PA PA cp Katherine Fischer RN RN 1 Shaista Franco df1
--- NOTE | 2021-07-20 22:51 | EDPHYS ---
Physician Documentation [facility] Name: Kelly Phelps Age: 40 yrs Sex: Female : 1980 Arrival Date: 07/20/2021 Time: 18:24 Bed 10 Private MD: Lasha Stoddard ED Physician Delvis Camp HPI: 07/20 20:45 This 40 yrs old Female presents to ER via Ambulatory with complaints of cp Abdominal Pain. 20:45 The patient presents with abdominal pain in the right upper quadrant. Onset: The cp symptoms/episode began/occurred yesterday. The symptoms radiate to right back. Associated signs and symptoms: Pertinent positives: dysuria. 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 - Social history:: Smoking status: Patient denies any tobacco usage or history of. ROS: 21:00 Constitutional: Negative for body aches, chills, fever, poor PO intake. cp 21:00 Eyes: Negative for injury, pain, redness, and discharge. cp 21:00 ENT: Negative for drainage from ear(s), ear pain, sore throat, difficulty swallowing, difficulty handling secretions. 21:00 Cardiovascular: Negative for chest pain, palpitations. 21:00 Respiratory: Negative for cough, shortness of breath, wheezing. 21:00 Abdomen/GI: Positive for abdominal pain, of the anterior aspect of right lateral abdomen and right upper quadrant. 21:00 Back: Positive for radiated pain, of the right mid back. 21:00 : Positive for burning with urination. 21:00 Neuro: Positive for headache, Negative for altered mental status, numbness, weakness. cp Exam: 21:05 Head/Face: Normocephalic, atraumatic. cp 21:05 Constitutional: The patient appears in no acute distress, alert, awake, non-toxic, well developed, well nourished. 21:05 Eyes: Periorbital structures: appear normal, Conjunctiva: normal, no exudate, no injection, Sclera: no appreciated abnormality, Lids and lashes: appear normal, bilaterally. 21:05 ENT: External ear(s): are unremarkable, Nose: is normal, Mouth: Lips: moist, Oral mucosa: moist, Posterior pharynx: Airway: no evidence of obstruction, patent. 21:05 Chest/axilla: Inspection: normal, Palpation: is normal, no crepitus, no tenderness. 21:05 Cardiovascular: Rate: normal, Rhythm: regular. 21:05 Respiratory: the patient does not display signs of respiratory distress, Respirations: normal, no use of accessory muscles, no retractions, labored breathing, is not present, Breath sounds: are clear throughout, no decreased breath sounds, no stridor, no wheezing. 21:05 Abdomen/GI: Inspection: abdomen appears normal, Bowel sounds: active, all quadrants, Palpation: soft, in all quadrants, mild abdominal tenderness, in the anterior aspect of right lateral abdomen and right upper quadrant, rebound tenderness, is not appreciated, involuntary guarding, is not appreciated. 21:05 Back: CVA tenderness, is absent. Vital Signs: 19:22 BP 128 / 83; Pulse 69; Resp 18; Temp 97.6; Pulse Ox 99% on R/A; Weight 68.04 kg; Height em 5 ft. 6 in. (167.64 cm); 19:49 BP 115 / 83; Pulse 73; Resp 16; Pulse Ox 100% on R/A; df1 20:58 BP 107 / 70; Pulse 75; Resp 18; Pulse Ox 100% on R/A; df1 22:32 BP 105 / 72; Pulse 74; Resp 18; Pulse Ox 100% on R/A; df1 19:22 Body Mass Index 24.21 (68.04 kg, 167.64 cm) em MDM: 19:39 Patient medically screened. cp 21:00 Differential diagnosis: cholecystitis, Cholelithiasis, pancreatitis, Peptic Ulcer cp Disease, Pyelonephritis, Ureterolithiasis, urinary tract infection. 22:50 Data reviewed: vital signs, nurses notes, lab test result(s), radiologic studies, CT cp scan, ultrasound. 22:50 Counseling: I had a detailed discussion with the patient and/or guardian regarding: the cp historical points, exam findings, and any diagnostic results supporting the discharge/admit diagnosis, lab results, radiology results, to return to the emergency department if symptoms worsen or persist or if there are any questions or concerns that arise at home. Response to treatment: the patient's symptoms have markedly improved after treatment, and as a result, I will discharge patient. 07/20 20:06 Order name: Basic Metabolic Panel; Complete Time: 22:26 07/20 22:26 Interpretation: Normal except: CL 112. 07/20 20:06 Order name: CBC with Diff; Complete Time: 20:59 07/20 20:06 Order name: Hepatic Function; Complete Time: 22:26 07/20 22:26 Interpretation: Normal except: AST 10; ALK 37. 07/20 20:06 Order name: Lipase; Complete Time: 22:26 07/20 20:06 Order name: Urine Microscopic Only; Complete Time: 22:26 07/20 22:27 Interpretation: Normal except: URBC 5-10; UBACT 20-50. 07/20 20:28 Order name: Urine Dipstick-Ancillary; Complete Time: 20:59 EDPR 07/20 22:37 Interpretation: Normal except: UBLD Trace-intact; UPH 8.0; UPROT Trace. 07/20 20:06 Order name: US Abdomen Limited: RUQ/epigastric; Complete Time: 20:59 07/20 21:00 Interpretation: Report reviewed. 07/20 20:28 Order name: Urine --Ancillary (enter results); Complete Time: 22:26 tt3 07/20 21:01 Order name: CT Abd/Pelvis - IV Contrast Only; Complete Time: 22:26 07/20 21:17 Order name: Urine Culture [facility] 07/20 20:06 Order name: IV Saline Lock; Complete Time: 20:45 07/20 20:06 Order name: Labs collected and sent; Complete Time: 20:45 07/20 20:06 Order name: Urine Dipstick-Ancillary (obtain specimen); Complete Time: 20:45 07/20 20:06 Order name: Urine Test (obtain specimen); Complete Time: 20:45 07/20 20:06 Order name: NPO; Complete Time: 20:45 cp Administered Medications: 20:45 Drug: Zofran (Ondansetron) 4 mg Route: IVP; Site: right antecubital; df1 21:02 Follow up: Response: No adverse reaction; Nausea is decreased df1 20:45 Drug: Pepcid (famotidine) 20 mg Route: IVP; Site: right antecubital; df1 21:02 Follow up: Response: No adverse reaction df1 22:25 Drug: NS 0.9% 1000 ml Route: IV; Rate: 1 bolus; Site: right antecubital; df1 23:09 Follow up: Response: No adverse reaction; IV Intake: 1000ml df1 22:55 Drug: Rocephin (cefTRIAXone) 1 grams Route: IV; Rate: calculated rate; Site: right df1 antecubital; 23:08 Follow up: Response: No adverse reaction; IV Intake: 10ml df1 Disposition: 07/21 04:30 Co-signature as Attending Physician, Delvis Camp MD. pkl Disposition Summary: 07/20/21 22:51 Discharge Ordered Location: Home cp Problem: new cp Symptoms: have improved cp Condition: Stable cp Diagnosis - UTI/ Urinary tract infection, site not specified cp Followup: cp - With: Private Physician - When: 1 - 2 days - Reason: Worsening of condition Discharge Instructions: - Discharge Summary Sheet cp - Dysuria cp - Urinary Tract Infection, Adult cp Forms: - Medication Reconciliation Form cp - Thank You Letter cp - Antibiotic Education cp - Prescription Opioid Use cp Prescriptions: - Pyridium 200 mg Oral Tablet - take 1 tablet by ORAL route every 8 hours for 3 days; 9 tablet; Refills: 0, cp Product Selection Permitted - Zofran 4 mg Oral Tablet - take 1 tablet by ORAL route every 12 hours As needed; 20 tablet; Refills: 0, cp Product Selection Permitted - Bactrim DS 800-160 mg Oral Tablet - take 1 tablet by ORAL route every 12 hours for 7 days; 14 tablet; Refills: 0, cp Product Selection Permitted Signatures: Dispatcher [employer] Delvis Dukes MD MD pkl Leonard Mix, RN RN em Donald Ayers PA PA cp Furlich, Dawn df1
[2021-07-20] MEDS ORDERED: CEFTRIAXONE/SWI 1gm 1 GM/10 ML SYR ONE (23:11)
[2021-07-21 01:02] VITALS: TEMP 97.6
[2021-07-21 01:03] VITALS: O2SAT 100
[2021-07-21 01:06] VITALS: BP 105/72
== END 2021-07-20 23:09 | disposition home or self-care (01) ==
LOC: ER 18:21
DX: N39.0 Urinary tract infection, site not specified (principal)
CPT/HCPCS: 87088; 85025; 87086; 80048; 36415; 81025; 80076; 83690; 74177; 76705; 96375; 96374; 99284; Q9967; J0696; J7030; J2405; 81003; 81015

== ENCOUNTER 2022-11-19 12:18 | Emergency (ER) | payer BC ==
--- OUTSIDE RECORDS SUMMARY | 2022-11-19 12:25 | XMS REPORT | Continuity of Care Document ---
:1980 Author Organization [facility] t Address [address] [place] [address] Care Team Providers Name Role Phone Lasha Stoddard Attending Clinician Unavailable GENERAL, SERVICE Attending Clinician Unavailable Payers Payer Name Policy Type Policy Number Effective Date Expiration Date S ource Ambetter from [id number] Common Spi rit [facility] Ambetter from [id number] Common Spi rit [facility] Ambetter from [id number] Common Spi rit [facility] Problems Condition Condition Condition Status Onset Resolution Last Treating Co mments Source Name Details Category Date Date Treatment Clinician Date S/P S/P Problem Active [facility] 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 appendecto my my Allergic Allergic Problem Commo n rhinitis rhinitis Spirit due to due to - [facility] pollen pollen [facility] Allergic Allergic Problem Commo n rhinitis rhinitis, Spiri t unspecifie - [facility] unspecifie Center d trigger [id number] Rheumatoid Problem Co mmon arthritis [facility] unspecifie Medica l d whether Center rheumatoid factor present [id number] Decreased Problem Comm on appetite [facility] Allergies, Adverse Reactions, Alerts This patient has no known allergies or adverse reactions. Social History Social Habit Start Date Stop Date Quantity Comments Source History of Tobacco Use Co mmon [facility] Sex Assigned At Com mon [facility] Smoking Status Start Date Stop Date Source Never Smoker Common [facility] Medications Ordered Filled Start Stop Current Ordering Indication Dosage Frequency Signature Comments Components Source Medication Medication Date Date Medication? Clinician (SIG) Name Name Montelukast Montelukast 2021-11 No 1{table QD Montelukas Sodium 10 Sodium 10 0-10 t} t Sodium MG MG 00:00: 10 MG 00 Kenalog Kenalog 2021-11 No 40mg Common (Triamcinol (Triamcinol 0-10 S pirit one) one) 00:00: - [facility] 2021-11 No 1{table QD Montelukas Sodium 10 Sodium 10 0-10 t} t Sodium MG MG 00:00: 10 MG 00 Kenalog Kenalog 2021-11 No 40mg Common (Triamcinol (Triamcinol 0-10 S pirit one) one) 00:00: - [facility] No 1{table QD Montelukas Sodium 10 Sodium 10 0-10 t} t Sodium MG MG 00:00: 10 MG 00 Kenalog Kenalog 2021-11 No 40mg Common (Triamcinol (Triamcinol 0-10 S pirit one) one) 00:00: - [facility] 2021-11 No 1{table QD Montelukas Sodium 10 Sodium 10 0-10 t} t Sodium MG MG 00:00: 10 MG 00 Kenalog Kenalog 2021-11 No 40mg Common (Triamcinol (Triamcinol 0-10 S pirit one) one) 00:00: - [facility] 2021-11 No 1{table QD Montelukas Sodium 10 Sodium 10 0-10 t} t Sodium MG MG 00:00: 10 MG 00 Kenalog Kenalog 2021-11 No 40mg Common (Triamcinol (Triamcinol 0-10 S pirit one) one) 00:00: - [facility] 00 [facility] Montelukast Montelukast 2021-11 No 1{table QD Montelukas Sodium 10 Sodium 10 0-10 t} t Sodium MG MG 00:00: 10 MG 00 Kenalog Kenalog 2021-11 No 40mg Common (Triamcinol (Triamcinol 0-10 S pirit one) one) 00:00: - [facility] 00 [facility] [place] Montelukast 2021-11 No 1{table QD Montelukas Sodium 10 Sodium 10 0-10 t} t Sodium MG MG 00:00: 10 MG 00 Kenalog Kenalog 2021-11 No 40mg Common (Triamcinol (Triamcinol 0-10 S pirit one) one) 00:00: - [facility] 00 [facility] Levocetiriz Levocetiriz 2021-11- No 1{table QD Levocetiri ine ine 0-10 11-08 t_in_th zine Dihydrochlo Dihydrochlo 00:00: 00:00 e_eveni Dihydrochl ride 5 MG ride 5 MG 00 :00 ng} oride 5 MG Levocetiriz Levocetiriz 2021-11- No 1{table QD Levocetiri ine ine 0-10 11-08 t_in_th zine Dihydrochlo Dihydrochlo 00:00: 00:00 e_eveni Dihydrochl ride 5 MG ride 5 MG 00 :00 ng} oride 5 MG Kenalog Kenalog 2021-11 No 40mg Common (Triamcinol (Triamcinol 0-04 S pirit one) one) 00:00: - [facility] 00 [facility] Kenalog Kenalog 2021-11 No 40mg Common (Triamcinol (Triamcinol 0-04 S pirit one) one) 00:00: - [facility] 00 [facility] Kenalog Kenalog 2021-11 No 40mg Common (Triamcinol (Triamcinol 0-04 S pirit one) one) 00:00: - [facility] 00 [facility] 2021-11 No 40mg Common (Triamcinol (Triamcinol 0-04 S pirit one) one) 00:00: - [facility] 00 [facility] 2021-11 No 40mg Common (Triamcinol (Triamcinol 0-04 S pirit one) one) 00:00: - [facility] 00 [facility] 2021-11 No 40mg Common (Triamcinol (Triamcinol 0-04 S pirit one) one) 00:00: - [facility] 00 [facility] 2021-11 No 40mg Common (Triamcinol (Triamcinol 0-04 S pirit one) one) 00:00: - [facility] 00 [facility] 2021-11 No 40mg Common (Triamcinol (Triamcinol 0-04 S pirit one) one) 00:00: - [facility] 00 [facility] 2021-11 No 40mg Common (Triamcinol (Triamcinol 0-04 S pirit one) one) 00:00: - [facility] 00 [facility] 2021-11 No 40mg Common (Triamcinol (Triamcinol 0-04 S pirit one) one) 00:00: - [facility] 00 [facility] 2021-11 No 40mg Common (Triamcinol (Triamcinol 0-04 S pirit one) one) 00:00: - [facility] 00 [facility] allergy allergy 2021-0 No .4mL Common extract extract 9-23 Spirit 00:00: - [facility] 00 [facility] allergy allergy 2-0 No .4mL Common extract extract 9-23 Spirit 00:00: - [facility] 00 [facility] allergy allergy 2022-0 No .4mL Common extract extract 9-23 Spirit 00:00: - [facility] 00 [facility] allergy allergy 2-0 No .4mL Common extract extract 9-23 Spirit 00:00: - [facility] 00 [facility] allergy allergy 2-0 No .4mL Common extract extract 07-27 Spirit 00:00: - [facility] 00 [facility] allergy allergy 2-0 No .4mL Common extract extract 07-27 Spirit 00:00: - [facility] 00 [facility] allergy allergy 2-0 No .4mL Common extract extract 07-27 Spirit 00:00: - [facility] 00 [facility] allergy allergy 2-0 No .4mL Common extract extract 07-27 Spirit 00:00: - [facility] 00 [facility] allergy allergy 2-0 No .4mL Common extract extract 07-27 Spirit 00:00: - [facility] 00 [facility] allergy allergy 2-0 No .4mL Common extract extract 07-27 Spirit 00:00: - [facility] 00 [facility] allergy allergy 2-0 No .4mL Common extract extract 07-27 Spirit 00:00: - [facility] 00 [facility] allergy allergy 2-0 No .4mL Common extract extract 07-27 Spirit 00:00: - [facility] 00 [facility] allergy allergy 2-0 No .4mL Common extract extract 07-27 Spirit 00:00: - [facility] 00 [facility] allergy allergy 2-0 No .4mL Common extract extract 07-27 Spirit 00:00: - [facility] 00 [facility] allergy allergy 2-0 No .4mL Common extract extract 07-27 Spirit 00:00: - [facility] 00 [facility] allergy allergy 2-0 No .4mL Common extract extract 07-27 Spirit 00:00: - [facility] 00 [facility] allergy allergy 2-0 No .4mL Common extract extract 07-27 Spirit 00:00: - [facility] 00 [facility] allergy allergy 2-0 No .4mL Common extract extract 07-27 Spirit 00:00: - [facility] 00 [facility] allergy allergy 2-0 No .4mL Common extract extract 07-27 Spirit 00:00: - [facility] 00 [facility] allergy allergy 2-0 No .4mL Common extract extract 07-27 Spirit 00:00: - [facility] 00 [facility] allergy allergy 2-0 No .4mL Common extract extract 07-27 Spirit 00:00: - [facility] 00 [facility] allergy allergy 2-0 No .4mL Common extract extract 07-27 Spirit 00:00: - [facility] 00 [facility] allergy allergy 2-0 No .4mL Common extract extract 07-27 Spirit 00:00: - [facility] 00 [facility] allergy allergy 2-0 No .4mL Common extract extract 07-27 Spirit 00:00: - [facility] 00 [facility] allergy allergy 2-0 No .4mL Common extract extract 07-27 Spirit 00:00: - [facility] 00 [facility] allergy allergy 2-0 No .4mL Common extract extract 07-27 Spirit 00:00: - [facility] 00 [facility] allergy allergy 2-0 No .4mL Common extract extract 07-27 Spirit 00:00: - [facility] 00 [facility] allergy allergy 2021-0 No .4mL Common extract extract 07-27 Spirit 00:00: - [facility] 00 [facility] allergy allergy 2-0 No .4mL Common extract extract 07-27 Spirit 00:00: - [facility] 00 [facility] allergy allergy 2-0 No .4mL Common extract extract 07-27 Spirit 00:00: - [facility] 00 [facility] allergy allergy 2-0 No .35mL Common extract extract 07-20 Spirit 00:00: - [facility] 00 [facility] allergy allergy 2-0 No .35mL Common extract extract 07-20 Spirit 00:00: - [facility] 00 [facility] allergy allergy 2-0 No .35mL Common extract extract 07-20 Spirit 00:00: - [facility] 00 [facility] allergy allergy 2-0 No .35mL Common extract extract 916 Spirit 00:00: - [facility] 00 [facility] allergy allergy 2-0 No .35mL Common extract extract 916 Spirit 00:00: - [facility] 00 [facility] allergy allergy 2-0 No .35mL Common extract extract 916 Spirit 00:00: - [facility] 00 [facility] allergy allergy 2-0 No .35mL Common extract extract 916 Spirit 00:00: - [facility] 00 [facility] allergy allergy 2-0 No .35mL Common extract extract 9-16 Spirit 00:00: - [facility] 00 [facility] allergy allergy 2-0 No .35mL Common extract extract 916 Spirit 00:00: - [facility] 00 [facility] allergy allergy 2-0 No .35mL Common extract extract 9-16 Spirit 00:00: - [facility] 00 [facility] allergy allergy 2-0 No .35mL Common extract extract 16 Spirit 00:00: - [facility] 00 [facility] allergy allergy 2-0 No .35mL Common extract extract 16 Spirit 00:00: - [facility] 00 [facility] allergy allergy 2021-0 No .35mL Common extract extract 16 Spirit 00:00: - [facility] 00 [facility] allergy allergy 2021-0 No .35mL Common extract extract 16 Spirit 00:00: - [facility] 00 [facility] allergy allergy 2021-0 No .35mL Common extract extract 16 Spirit 00:00: - [facility] 00 [facility] allergy allergy 2021-0 No .35mL Common extract extract 16 Spirit 00:00: - [facility] 00 [facility] allergy allergy 2021-0 No .35mL Common extract extract 16 Spirit 00:00: - [facility] 00 [facility] allergy allergy 2-0 No .35mL Common extract extract -16 Spirit 00:00: - [facility] 00 [facility] allergy allergy 2-0 No .35mL Common extract extract 16 Spirit 00:00: - [facility] 00 [facility] allergy allergy 2-0 No .35mL Common extract extract 16 Spirit 00:00: - [facility] 00 [facility] allergy allergy 2-0 No .35mL Common extract extract 16 Spirit 00:00: - [facility] 00 [facility] allergy allergy 2-0 No .35mL Common extract extract 9-16 Spirit 00:00: - [facility] 00 [facility] allergy allergy 2-0 No .35mL Common extract extract 9-16 Spirit 00:00: - [facility] 00 [facility] allergy allergy 2-0 No .35mL Common extract extract 9-16 Spirit 00:00: - [facility] 00 [facility] allergy allergy 2-0 No .35mL Common extract extract 9-16 Spirit 00:00: - [facility] 00 [facility] allergy allergy 2-0 No .35mL Common extract extract 9-16 Spirit 00:00: - [facility] 00 [facility] allergy allergy 2-0 No .35mL Common extract extract 9-16 Spirit 00:00: - [facility] 00 [facility] allergy allergy 2-0 No .35mL Common extract extract 9-16 Spirit 00:00: - [facility] 00 [facility] allergy allergy 2-0 No .35mL Common extract extract 916 Spirit 00:00: - [facility] 00 [facility] allergy allergy 2-0 No .35mL Common extract extract 9-16 Spirit 00:00: - [facility] 00 [facility] allergy allergy 2-0 No .35mL Common extract extract 916 Spirit 00:00: - [facility] 00 [facility] allergy allergy 2-0 No .35mL Common extract extract 916 Spirit 00:00: - [facility] 00 [facility] allergy allergy 2-0 No .35mL Common extract extract 805 Spirit 00:00: - [facility] 00 [facility] allergy allergy 2-0 No .35mL Common extract extract 805 Spirit 00:00: - [facility] 00 [facility] allergy allergy 2-0 No .35mL Common extract extract 8-05 Spirit 00:00: - [facility] 00 [facility] allergy allergy 2-0 No .35mL Common extract extract 805 Spirit 00:00: - [facility] 00 [facility] allergy allergy 2-0 No .35mL Common extract extract 8 Spirit 00:00: - [facility] 00 [facility] allergy allergy 2-0 No .35mL Common extract extract 8-05 Spirit 00:00: - [facility] 00 [facility] allergy allergy 2-0 No .35mL Common extract extract 8-05 Spirit 00:00: - [facility] 00 [facility] allergy allergy 2-0 No .35mL Common extract extract 8-05 Spirit 00:00: - [facility] 00 [facility] allergy allergy 2-0 No .35mL Common extract extract 8-05 Spirit 00:00: - [facility] 00 [facility] allergy allergy 2-0 No .35mL Common extract extract 8-05 Spirit 00:00: - [facility] 00 [facility] allergy allergy 2-0 No .35mL Common extract extract 805 Spirit 00:00: - [facility] 00 [facility] allergy allergy 2-0 No .35mL Common extract extract 8 Spirit 00:00: - [facility] 00 [facility] allergy allergy 2-0 No .35mL Common extract extract 06-08 Spirit 00:00: - [facility] 00 [facility] allergy allergy 2-0 No .35mL Common extract extract 06-08 Spirit 00:00: - [facility] 00 [facility] allergy allergy 2-0 No .35mL Common extract extract 06-08 Spirit 00:00: - [facility] 00 [facility] allergy allergy 2-0 No .35mL Common extract extract 06-08 Spirit 00:00: - [facility] 00 [facility] allergy allergy 2-0 No .35mL Common extract extract 06-08 Spirit 00:00: - [facility] 00 [facility] allergy allergy 2-0 No .35mL Common extract extract 06-08 Spirit 00:00: - [facility] 00 [facility] allergy allergy 2-0 No .35mL Common extract extract 06-08 Spirit 00:00: - [facility] 00 [facility] allergy allergy 2-0 No .35mL Common extract extract 06-08 Spirit 00:00: - [facility] 00 [facility] allergy allergy 2-0 No .35mL Common extract extract 06-08 Spirit 00:00: - [facility] 00 [facility] allergy allergy 2-0 No .35mL Common extract extract 06-08 Spirit 00:00: - [facility] 00 [facility] allergy allergy 2-0 No .35mL Common extract extract 06-08 Spirit 00:00: - [facility] 00 [facility] allergy allergy 2-0 No .35mL Common extract extract 06-08 Spirit 00:00: - [facility] 00 [facility] allergy allergy 2-0 No .35mL Common extract extract 06-08 Spirit 00:00: - [facility] 00 [facility] allergy allergy 2-0 No .35mL Common extract extract 06-08 Spirit 00:00: - [facility] 00 [facility] allergy allergy 2-0 No .35mL Common extract extract 06-08 Spirit 00:00: - [facility] 00 [facility] allergy allergy 2-0 No .35mL Common extract extract 8 Spirit 00:00: - [facility] 00 [facility] allergy allergy 2-0 No .35mL Common extract extract 8-05 Spirit 00:00: - [facility] 00 [facility] allergy allergy 2022-0 No .35mL Common extract extract 8 Spirit 00:00: - [facility] 00 [facility] allergy allergy 2-0 No .35mL Common extract extract 8 Spirit 00:00: - [facility] 00 [facility] allergy allergy 2-0 No .35mL Common extract extract 8 Spirit 00:00: - [facility] 00 [facility] allergy allergy 2-0 No .35mL Common extract extract 8 Spirit 00:00: - [facility] 00 [facility] allergy allergy 2-0 No .35mL Common extract extract 8 Spirit 00:00: - [facility] 00 [facility] allergy allergy 2-0 No .35mL Common extract extract 8 Spirit 00:00: - [facility] 00 [facility] allergy allergy 2-0 No .35mL Common extract extract 8 Spirit 00:00: - [facility] 00 [facility] allergy allergy 2-0 No .35mL Common extract extract 8 Spirit 00:00: - [facility] 00 [facility] allergy allergy 2-0 No .35mL Common extract extract 8 Spirit 00:00: - [facility] 00 [facility] allergy allergy 2-0 No .3mL Common extract extract 06-01 Spirit 00:00: - [facility] 00 [facility] allergy allergy 2022-0 No .3mL Common extract extract 06-01 Spirit 00:00: - [facility] 00 [facility] allergy allergy 2022-0 No .3mL Common extract extract 06-01 Spirit 00:00: - [facility] 00 [facility] allergy allergy 2022-0 No .3mL Common extract extract 06-01 Spirit 00:00: - [facility] 00 [facility] allergy allergy 2022-0 No .3mL Common extract extract 06-01 Spirit 00:00: - [facility] 00 [facility] allergy allergy 2022-0 No .3mL Common extract extract 06-01 Spirit 00:00: - [facility] 00 [facility] allergy allergy 2022-0 No .3mL Common extract extract 06-01 Spirit 00:00: - [facility] 00 [facility] allergy allergy 2022-0 No .3mL Common extract extract 06-01 Spirit 00:00: - [facility] 00 [facility] allergy allergy 2022-0 No .3mL Common extract extract 06-01 Spirit 00:00: - [facility] 00 [facility] allergy allergy 2022-0 No .3mL Common extract extract 06-01 Spirit 00:00: - [facility] 00 [facility] allergy allergy 2022-0 No .3mL Common extract extract 06-01 Spirit 00:00: - [facility] 00 [facility] allergy allergy 2022-0 No .3mL Common extract extract 06-01 Spirit 00:00: - [facility] 00 [facility] allergy allergy 2022-0 No .3mL Common extract extract 06-01 Spirit 00:00: - [facility] 00 [facility] allergy allergy 2022-0 No .3mL Common extract extract 06-01 Spirit 00:00: - [facility] 00 [facility] allergy allergy 2022-0 No .3mL Common extract extract 06-01 Spirit 00:00: - [facility] 00 [facility] allergy allergy 2022-0 No .3mL Common extract extract 06-01 Spirit 00:00: - [facility] allergy allergy 2022-0 No .3mL Common extract extract 06-01 Spirit 00:00: - [facility] 00 [facility] allergy allergy 2022-0 No .3mL Common extract extract 06-01 Spirit 00:00: - [facility] 00 [facility] allergy allergy 2022-0 No .3mL Common extract extract 06-01 Spirit 00:00: - [facility] 00 [facility] allergy allergy 2022-0 No .3mL Common extract extract 06-01 Spirit 00:00: - [facility] 00 [facility] allergy allergy 2022-0 No .3mL Common extract extract 06-01 Spirit 00:00: - [facility] 00 [facility] allergy allergy 2022-0 No .3mL Common extract extract 06-01 Spirit 00:00: - [facility] 00 [facility] allergy allergy 2022-0 No .3mL Common extract extract 06-01 Spirit 00:00: - [facility] 00 [facility] allergy allergy 2022-0 No .3mL Common extract extract 06-01 Spirit 00:00: - [facility] 00 [facility] allergy allergy 2022-0 No .3mL Common extract extract 06-01 Spirit 00:00: - [facility] 00 [facility] allergy allergy 2022-0 No .3mL Common extract extract 06-01 Spirit 00:00: - [facility] 00 [facility] allergy allergy 2022-0 No .3mL Common extract extract 06-01 Spirit 00:00: - [facility] 00 [facility] allergy allergy 2022-0 No .3mL Common extract extract 06-01 Spirit 00:00: - [facility] 00 [facility] allergy allergy 2022-0 No .3mL Common extract extract 06-01 [facility] 00:00: - [facility] 00 [facility] allergy allergy 2022-0 No .3mL Common extract extract 06-01 [facility] 00:00: - [facility] 00 [facility] allergy allergy 2022-0 No .3mL Common extract extract 06-01 [facility] 00:00: - [facility] 00 [facility] allergy allergy 2022-0 No .3mL Common extract extract 06-01 [facility] 00:00: - [facility] 00 [facility] allergy allergy 2022-0 No .3mL Common extract extract 06-01 Spirit 00:00: - [facility] 00 [facility] allergy allergy 2022-0 No .3mL Common extract extract 06-01 [facility] 00:00: - [facility] 00 [facility] allergy allergy 2022-0 No .3mL Common extract extract 06-01 Spirit 00:00: - [facility] 00 [facility] allergy allergy 2022-0 No .3mL Common extract extract 06-01 [facility] 00:00: - [facility] 00 [facility] allergy allergy 2022-0 No .3mL Common extract extract 06-01 Spirit 00:00: - [facility] 00 [facility] allergy allergy 2022-0 No .3mL Common extract extract 06-01 [facility] 00:00: - [facility] 00 [facility] allergy allergy 2022-0 No .3mL Common extract extract 06-01 [facility] 00:00: - [facility] 00 [facility] allergy allergy 2022-0 No .3mL Common extract extract 06-01 [facility] 00:00: - [facility] 00 [facility] methylPREDN methylPREDN 2021-0 2021- No QD methylPRED ISolone 4 ISolone 4 5-25 05-31 NISolone 4 MG MG 00:00: 00:00 MG 00 :00 methylPREDN methylPREDN 2021-0 2022- No QD methylPRED ISolone 4 ISolone 4 03-28 05-31 NISolone 4 MG MG 00:00: 00:00 MG 00 :00 predniSONE predniSONE 2021-2021- No QD predniSONE 20 MG 20 MG 12-27 20 MG 00:00: 00:00 00 :00 predniSONE predniSONE 2021-2021- No QD predniSONE 20 MG 20 MG 12-27 20 MG 00:00: 00:00 00 :00 Benzonatate Benzonatate 2021-2021- No 1{capsu TID Benzonatat 200 MG 200 MG 12-15 le} e 200 MG 00:00: 00:00 00 :00 Benzonatate Benzonatate 2021-2021- No 1{capsu TID Benzonatat 200 MG 200 MG 12-15 le} e 200 MG 00:00: 00:00 00 :00 Permethrin Permethrin 2020-0 2021- No Permethrin 5 % 5 % 9-03 12-21 5 % 00:00: 00:00 00 :00 Permethrin Permethrin 2020-0 2020- No Permethrin 5 % 5 % 9-30 10-28 5 % 00:00: 00:00 00 :00 Permethrin Permethrin 2020-0 2020- No Permethrin 5 % 5 % 9-30 10-28 5 % 00:00: 00:00 00 :00 predniSONE predniSONE No 1{table QD predniSONE 5 MG 5 MG t} 5 MG Restasis Restasis No 1{drop_ BID Restasis 0.05 % 0.05 % into_af 0.05 % fected_ eye} Zofran 4 MG Zofran 4 MG No 1{table QD Zofran 4 t} MG Benzonatate Benzonatate No 1{capsu TID Benzonatat 200 MG 200 MG le} e 200 MG Bactrim DS Bactrim DS No 1{table BID Bactrim DS 800-160 MG 800-160 MG t} 800-160 MG Methotrexat Methotrexat No Methotrexa e 2.5 MG e 2.5 MG te 2.5 MG Azithromyci Azithromyci No QD Azithromyc n 250 MG n 250 MG in 250 MG Pyridium Pyridium No 1{table TID Pyridium 200 MG 200 MG t_after 200 MG _meals} predniSONE predniSONE No 1{table QD predniSONE 5 MG 5 MG t} 5 MG Enbrel Enbrel No Enbrel SureClick SureClick SureClick 50 MG/ML 50 MG/ML 50 MG/ML Zofran 4 MG Zofran 4 MG No 1{table QD Zofran 4 t} MG Restasis Restasis No 1{drop_ BID Restasis 0.05 % 0.05 % into_af 0.05 % fected_ eye} Benzonatate Benzonatate No 1{capsu TID Benzonatat 200 MG 200 MG le} e 200 MG Methotrexat Methotrexat No Methotrexa e 2.5 MG e 2.5 MG te 2.5 MG Bactrim DS Bactrim DS No 1{table BID Bactrim DS 800-160 MG 800-160 MG t} 800-160 MG Azithromyci Azithromyci No QD Azithromyc n 250 MG n 250 MG in 250 MG Pyridium Pyridium No 1{table TID Pyridium 200 MG 200 MG t_after 200 MG _meals} predniSONE predniSONE No 1{table QD predniSONE 5 MG 5 MG t} 5 MG Enbrel Enbrel No Enbrel SureClick SureClick SureClick 50 MG/ML 50 MG/ML 50 MG/ML Zofran 4 MG Zofran 4 MG No 1{table QD Zofran 4 t} MG Restasis Restasis No 1{drop_ BID Restasis 0.05 % 0.05 % into_af 0.05 % fected_ eye} Benzonatate Benzonatate No 1{capsu TID Benzonatat 200 MG 200 MG le} e 200 MG Methotrexat Methotrexat No Methotrexa e 2.5 MG e 2.5 MG te 2.5 MG Bactrim DS Bactrim DS No 1{table BID Bactrim DS 800-160 MG 800-160 MG t} 800-160 MG Azithromyci Azithromyci No QD Azithromyc n 250 MG n 250 MG in 250 MG predniSONE predniSONE No 1{table QD predniSONE 5 MG 5 MG t} 5 MG Bactrim DS Bactrim DS No 1{table BID Bactrim DS 800-160 MG 800-160 MG t} 800-160 MG Methotrexat Methotrexat No Methotrexa e 2.5 MG e 2.5 MG te 2.5 MG Enbrel Enbrel No Enbrel SureClick SureClick SureClick 50 MG/ML 50 MG/ML 50 MG/ML Benzonatate Benzonatate No 1{capsu TID Benzonatat 200 MG 200 MG le} e 200 MG Zofran 4 MG Zofran 4 MG No 1{table QD Zofran 4 t} MG Pyridium Pyridium No 1{table TID Pyridium 200 MG 200 MG t_after 200 MG _meals} Restasis Restasis No 1{drop_ BID Restasis 0.05 % 0.05 % into_af 0.05 % fected_ eye} Methotrexat Methotrexat No Methotrexa e 2.5 MG e 2.5 MG te 2.5 MG Zofran 4 MG Zofran 4 MG No 1{table QD Zofran 4 t} MG Restasis Restasis No 1{drop_ BID Restasis 0.05 % 0.05 % into_af 0.05 % fected_ eye} Bactrim DS Bactrim DS No 1{table BID Bactrim DS 800-160 MG 800-160 MG t} 800-160 MG Enbrel Enbrel No Enbrel SureClick SureClick SureClick 50 MG/ML 50 MG/ML 50 MG/ML predniSONE predniSONE No 1{table QD predniSONE 5 MG 5 MG t} 5 MG Pyridium Pyridium No 1{table TID Pyridium 200 MG 200 MG t_after 200 MG _meals} Methotrexat Methotrexat No Methotrexa e 2.5 MG e 2.5 MG te 2.5 MG Zofran 4 MG Zofran 4 MG No 1{table QD Zofran 4 t} MG Restasis Restasis No 1{drop_ BID Restasis 0.05 % 0.05 % into_af 0.05 % fected_ eye} Bactrim DS Bactrim DS No 1{table BID Bactrim DS 800-160 MG 800-160 MG t} 800-160 MG Enbrel Enbrel No Enbrel SureClick SureClick SureClick 50 MG/ML 50 MG/ML 50 MG/ML predniSONE predniSONE No 1{table QD predniSONE 5 MG 5 MG t} 5 MG Pyridium Pyridium No 1{table TID Pyridium 200 MG 200 MG t_after 200 MG _meals} Restasis Restasis No 1{drop_ BID Restasis 0.05 % 0.05 % into_af 0.05 % fected_ eye} Methotrexat Methotrexat No Methotrexa e 2.5 MG e 2.5 MG te 2.5 MG Bactrim DS Bactrim DS No 1{table BID Bactrim DS 800-160 MG 800-160 MG t} 800-160 MG Enbrel Enbrel No Enbrel SureClick SureClick SureClick 50 MG/ML 50 MG/ML 50 MG/ML predniSONE predniSONE No 1{table QD predniSONE 5 MG 5 MG t} 5 MG Zofran 4 MG Zofran 4 MG No 1{table QD Zofran 4 t} MG Pyridium Pyridium No 1{table TID Pyridium 200 MG 200 MG t_after 200 MG _meals} Methotrexat Methotrexat No Methotrexa e 2.5 MG e 2.5 MG te 2.5 MG Bactrim DS Bactrim DS No 1{table BID Bactrim DS 800-160 MG 800-160 MG t} 800-160 MG Restasis Restasis No 1{drop_ BID Restasis 0.05 % 0.05 % into_af 0.05 % fected_ eye} predniSONE predniSONE No 1{table QD predniSONE 5 MG 5 MG t} 5 MG Enbrel Enbrel No Enbrel SureClick SureClick SureClick 50 MG/ML 50 MG/ML 50 MG/ML Pyridium Pyridium No 1{table TID Pyridium 200 MG 200 MG t_after 200 MG _meals} Zofran 4 MG Zofran 4 MG No 1{table QD Zofran 4 t} MG Methotrexat Methotrexat No Methotrexa e 2.5 MG e 2.5 MG te 2.5 MG Zofran 4 MG Zofran 4 MG No 1{table QD Zofran 4 t} MG Pyridium Pyridium No 1{table TID Pyridium 200 MG 200 MG t_after 200 MG _meals} Restasis Restasis No 1{drop_ BID Restasis 0.05 % 0.05 % into_af 0.05 % fected_ eye} predniSONE predniSONE No 1{table QD predniSONE 5 MG 5 MG t} 5 MG Enbrel Enbrel No Enbrel SureClick SureClick SureClick 50 MG/ML 50 MG/ML 50 MG/ML Bactrim DS Bactrim DS No 1{table BID Bactrim DS 800-160 MG 800-160 MG t} 800-160 MG Bactrim DS Bactrim DS No 1{table BID Bactrim DS 800-160 MG 800-160 MG t} 800-160 MG Pyridium Pyridium No 1{table TID Pyridium 200 MG 200 MG t_after 200 MG _meals} Enbrel Enbrel No Enbrel SureClick SureClick SureClick 50 MG/ML 50 MG/ML 50 MG/ML Zofran 4 MG Zofran 4 MG No 1{table QD Zofran 4 t} MG Restasis Restasis No 1{drop_ BID Restasis 0.05 % 0.05 % into_af 0.05 % fected_ eye} predniSONE predniSONE No 1{table QD predniSONE 5 MG 5 MG t} 5 MG Methotrexat Methotrexat No Methotrexa e 2.5 MG e 2.5 MG te 2.5 MG Pyridium Pyridium No 1{table TID Pyridium 200 MG 200 MG t_after 200 MG _meals} Enbrel Enbrel No Enbrel SureClick SureClick SureClick 50 MG/ML 50 MG/ML 50 MG/ML Methotrexat Methotrexat No Methotrexa e 2.5 MG e 2.5 MG te 2.5 MG Benzonatate Benzonatate No 1{capsu TID Benzonatat 200 MG 200 MG le} e 200 MG Bactrim DS Bactrim DS No 1{table BID Bactrim DS 800-160 MG 800-160 MG t} 800-160 MG predniSONE predniSONE No 1{table QD predniSONE 5 MG 5 MG t} 5 MG Zofran 4 MG Zofran 4 MG No 1{table QD Zofran 4 t} MG Azithromyci Azithromyci No QD Azithromyc n 250 MG n 250 MG in 250 MG Restasis Restasis No 1{drop_ BID Restasis 0.05 % 0.05 % into_af 0.05 % fected_ eye} Pyridium Pyridium No 1{table TID Pyridium 200 MG 200 MG t_after 200 MG _meals} Enbrel Enbrel No Enbrel SureClick SureClick SureClick 50 MG/ML 50 MG/ML 50 MG/ML Methotrexat Methotrexat No Methotrexa e 2.5 MG e 2.5 MG te 2.5 MG Benzonatate Benzonatate No 1{capsu TID Benzonatat 200 MG 200 MG le} e 200 MG Bactrim DS Bactrim DS No 1{table BID Bactrim DS 800-160 MG 800-160 MG t} 800-160 MG predniSONE predniSONE No 1{table QD predniSONE 5 MG 5 MG t} 5 MG Zofran 4 MG Zofran 4 MG No 1{table QD Zofran 4 t} MG Azithromyci Azithromyci No QD Azithromyc n 250 MG n 250 MG in 250 MG Restasis Restasis No 1{drop_ BID Restasis 0.05 % 0.05 % into_af 0.05 % fected_ eye} Zofran 4 MG Zofran 4 MG No 1{table QD Zofran 4 t} MG Methotrexat Methotrexat No Methotrexa e 2.5 MG e 2.5 MG te 2.5 MG Restasis Restasis No 1{drop_ BID Restasis 0.05 % 0.05 % into_af 0.05 % fected_ eye} Benzonatate Benzonatate No 1{capsu TID Benzonatat 200 MG 200 MG le} e 200 MG Enbrel Enbrel No Enbrel SureClick SureClick SureClick 50 MG/ML 50 MG/ML 50 MG/ML Azithromyci Azithromyci No QD Azithromyc n 250 MG n 250 MG in 250 MG Pyridium Pyridium No 1{table TID Pyridium 200 MG 200 MG t_after 200 MG _meals} Bactrim DS Bactrim DS No 1{table BID Bactrim DS 800-160 MG 800-160 MG t} 800-160 MG predniSONE predniSONE No 1{table QD predniSONE 5 MG 5 MG t} 5 MG Bactrim DS Bactrim DS No 1{table BID Bactrim DS 800-160 MG 800-160 MG t} 800-160 MG Azithromyci Azithromyci No QD Azithromyc n 250 MG n 250 MG in 250 MG Enbrel Enbrel No Enbrel SureClick SureClick SureClick 50 MG/ML 50 MG/ML 50 MG/ML Methotrexat Methotrexat No Methotrexa e 2.5 MG e 2.5 MG te 2.5 MG Benzonatate Benzonatate No 1{capsu TID Benzonatat 200 MG 200 MG le} e 200 MG Zofran 4 MG Zofran 4 MG No 1{table QD Zofran 4 t} MG Restasis Restasis No 1{drop_ BID Restasis 0.05 % 0.05 % into_af 0.05 % fected_ eye} Pyridium Pyridium No 1{table TID Pyridium 200 MG 200 MG t_after 200 MG _meals} predniSONE predniSONE No 1{table QD predniSONE 5 MG 5 MG t} 5 MG Bactrim DS Bactrim DS No 1{table BID Bactrim DS 800-160 MG 800-160 MG t} 800-160 MG Azithromyci Azithromyci No QD Azithromyc n 250 MG n 250 MG in 250 MG Enbrel Enbrel No Enbrel SureClick SureClick SureClick 50 MG/ML 50 MG/ML 50 MG/ML Methotrexat Methotrexat No Methotrexa e 2.5 MG e 2.5 MG te 2.5 MG Benzonatate Benzonatate No 1{capsu TID Benzonatat 200 MG 200 MG le} e 200 MG Zofran 4 MG Zofran 4 MG No 1{table QD Zofran 4 t} MG Restasis Restasis No 1{drop_ BID Restasis 0.05 % 0.05 % into_af 0.05 % fected_ eye} Pyridium Pyridium No 1{table TID Pyridium 200 MG 200 MG t_after 200 MG _meals} predniSONE predniSONE No 1{table QD predniSONE 5 MG 5 MG t} 5 MG Bactrim DS Bactrim DS No 1{table BID Bactrim DS 800-160 MG 800-160 MG t} 800-160 MG Benzonatate Benzonatate No 1{capsu TID Benzonatat 200 MG 200 MG le} e 200 MG Methotrexat Methotrexat No Methotrexa e 2.5 MG e 2.5 MG te 2.5 MG Enbrel Enbrel No Enbrel SureClick SureClick SureClick 50 MG/ML 50 MG/ML 50 MG/ML Azithromyci Azithromyci No QD Azithromyc n 250 MG n 250 MG in 250 MG Restasis Restasis No 1{drop_ BID Restasis 0.05 % 0.05 % into_af 0.05 % fected_ eye} Zofran 4 MG Zofran 4 MG No 1{table QD Zofran 4 t} MG predniSONE predniSONE No 1{table QD predniSONE 5 MG 5 MG t} 5 MG Pyridium Pyridium No 1{table TID Pyridium 200 MG 200 MG t_after 200 MG _meals} Enbrel Enbrel No Enbrel SureClick SureClick SureClick 50 MG/ML 50 MG/ML 50 MG/ML Restasis Restasis No 1{drop_ BID Restasis 0.05 % 0.05 % into_af 0.05 % fected_ eye} Benzonatate Benzonatate No 1{capsu TID Benzonatat 200 MG 200 MG le} e 200 MG predniSONE predniSONE No 1{table QD predniSONE 5 MG 5 MG t} 5 MG Zofran 4 MG Zofran 4 MG No 1{table QD Zofran 4 t} MG Pyridium Pyridium No 1{table TID Pyridium 200 MG 200 MG t_after 200 MG _meals} Methotrexat Methotrexat No Methotrexa e 2.5 MG e 2.5 MG te 2.5 MG Azithromyci Azithromyci No QD Azithromyc n 250 MG n 250 MG in 250 MG Bactrim DS Bactrim DS No 1{table BID Bactrim DS 800-160 MG 800-160 MG t} 800-160 MG Enbrel Enbrel No Enbrel SureClick SureClick SureClick 50 MG/ML 50 MG/ML 50 MG/ML Restasis Restasis No 1{drop_ BID Restasis 0.05 % 0.05 % into_af 0.05 % fected_ eye} Benzonatate Benzonatate No 1{capsu TID Benzonatat 200 MG 200 MG le} e 200 MG predniSONE predniSONE No 1{table QD predniSONE 5 MG 5 MG t} 5 MG Zofran 4 MG Zofran 4 MG No 1{table QD Zofran 4 t} MG Pyridium Pyridium No 1{table TID Pyridium 200 MG 200 MG t_after 200 MG _meals} Methotrexat Methotrexat No Methotrexa e 2.5 MG e 2.5 MG te 2.5 MG Azithromyci Azithromyci No QD Azithromyc n 250 MG n 250 MG in 250 MG Bactrim DS Bactrim DS No 1{table BID Bactrim DS 800-160 MG 800-160 MG t} 800-160 MG Zofran 4 MG Zofran 4 MG No 1{table QD Zofran 4 t} MG Azithromyci Azithromyci No QD Azithromyc n 250 MG n 250 MG in 250 MG predniSONE predniSONE No 1{table QD predniSONE 5 MG 5 MG t} 5 MG Pyridium Pyridium No 1{table TID Pyridium 200 MG 200 MG t_after 200 MG _meals} Benzonatate Benzonatate No 1{capsu TID Benzonatat 200 MG 200 MG le} e 200 MG Bactrim DS Bactrim DS No 1{table BID Bactrim DS 800-160 MG 800-160 MG t} 800-160 MG Restasis Restasis No 1{drop_ BID Restasis 0.05 % 0.05 % into_af 0.05 % fected_ eye} Methotrexat Methotrexat No Methotrexa e 2.5 MG e 2.5 MG te 2.5 MG Enbrel Enbrel No Enbrel SureClick SureClick SureClick 50 MG/ML 50 MG/ML 50 MG/ML Zofran 4 MG Zofran 4 MG No 1{table QD Zofran 4 t} MG Azithromyci Azithromyci No QD Azithromyc n 250 MG n 250 MG in 250 MG predniSONE predniSONE No 1{table QD predniSONE 5 MG 5 MG t} 5 MG Pyridium Pyridium No 1{table TID Pyridium 200 MG 200 MG t_after 200 MG _meals} Benzonatate Benzonatate No 1{capsu TID Benzonatat 200 MG 200 MG le} e 200 MG Bactrim DS Bactrim DS No 1{table BID Bactrim DS 800-160 MG 800-160 MG t} 800-160 MG Restasis Restasis No 1{drop_ BID Restasis 0.05 % 0.05 % into_af 0.05 % fected_ eye} Methotrexat Methotrexat No Methotrexa e 2.5 MG e 2.5 MG te 2.5 MG Enbrel Enbrel No Enbrel SureClick SureClick SureClick 50 MG/ML 50 MG/ML 50 MG/ML Enbrel Enbrel No Enbrel SureClick SureClick SureClick 50 MG/ML 50 MG/ML 50 MG/ML Bactrim DS Bactrim DS No 1{table BID Bactrim DS 800-160 MG 800-160 MG t} 800-160 MG Zofran 4 MG Zofran 4 MG No 1{table QD Zofran 4 t} MG Azithromyci Azithromyci No QD Azithromyc n 250 MG n 250 MG in 250 MG Restasis Restasis No 1{drop_ BID Restasis 0.05 % 0.05 % into_af 0.05 % fected_ eye} predniSONE predniSONE No 1{table QD predniSONE 5 MG 5 MG t} 5 MG Methotrexat Methotrexat No Methotrexa e 2.5 MG e 2.5 MG te 2.5 MG Benzonatate Benzonatate No 1{capsu TID Benzonatat 200 MG 200 MG le} e 200 MG Pyridium Pyridium No 1{table TID Pyridium 200 MG 200 MG t_after 200 MG _meals} Bactrim DS Bactrim DS No 1{table BID Bactrim DS 800-160 MG 800-160 MG t} 800-160 MG Azithromyci Azithromyci No QD Azithromyc n 250 MG n 250 MG in 250 MG Enbrel Enbrel No Enbrel SureClick SureClick SureClick 50 MG/ML 50 MG/ML 50 MG/ML Methotrexat Methotrexat No Methotrexa e 2.5 MG e 2.5 MG te 2.5 MG Benzonatate Benzonatate No 1{capsu TID Benzonatat 200 MG 200 MG le} e 200 MG Zofran 4 MG Zofran 4 MG No 1{table QD Zofran 4 t} MG Restasis Restasis No 1{drop_ BID Restasis 0.05 % 0.05 % into_af 0.05 % fected_ eye} Pyridium Pyridium No 1{table TID Pyridium 200 MG 200 MG t_after 200 MG _meals} predniSONE predniSONE No 1{table QD predniSONE 5 MG 5 MG t} 5 MG Pyridium Pyridium No 1{table TID Pyridium 200 MG 200 MG t_after 200 MG _meals} Benzonatate Benzonatate No 1{capsu TID Benzonatat 200 MG 200 MG le} e 200 MG Zofran 4 MG Zofran 4 MG No 1{table QD Zofran 4 t} MG Restasis Restasis No 1{drop_ BID Restasis 0.05 % 0.05 % into_af 0.05 % fected_ eye} Azithromyci Azithromyci No QD Azithromyc n 250 MG n 250 MG in 250 MG predniSONE predniSONE No 1{table QD predniSONE 5 MG 5 MG t} 5 MG Methotrexat Methotrexat No Methotrexa e 2.5 MG e 2.5 MG te 2.5 MG Enbrel Enbrel No Enbrel SureClick SureClick SureClick 50 MG/ML 50 MG/ML 50 MG/ML Bactrim DS Bactrim DS No 1{table BID Bactrim DS 800-160 MG 800-160 MG t} 800-160 MG Azithromyci Azithromyci No QD Azithromyc n 250 MG n 250 MG in 250 MG predniSONE predniSONE No 1{table QD predniSONE 5 MG 5 MG t} 5 MG Pyridium Pyridium No 1{table TID Pyridium 200 MG 200 MG t_after 200 MG _meals} Zofran 4 MG Zofran 4 MG No 1{table QD Zofran 4 t} MG Enbrel Enbrel No Enbrel SureClick SureClick SureClick 50 MG/ML 50 MG/ML 50 MG/ML Bactrim DS Bactrim DS No 1{table BID Bactrim DS 800-160 MG 800-160 MG t} 800-160 MG Benzonatate Benzonatate No 1{capsu TID Benzonatat 200 MG 200 MG le} e 200 MG Restasis Restasis No 1{drop_ BID Restasis 0.05 % 0.05 % into_af 0.05 % fected_ eye} Methotrexat Methotrexat No Methotrexa e 2.5 MG e 2.5 MG te 2.5 MG Azithromyci Azithromyci No QD Azithromyc n 250 MG n 250 MG in 250 MG predniSONE predniSONE No 1{table QD predniSONE 5 MG 5 MG t} 5 MG Pyridium Pyridium No 1{table TID Pyridium 200 MG 200 MG t_after 200 MG _meals} Zofran 4 MG Zofran 4 MG No 1{table QD Zofran 4 t} MG Enbrel Enbrel No Enbrel SureClick SureClick SureClick 50 MG/ML 50 MG/ML 50 MG/ML Bactrim DS Bactrim DS No 1{table BID Bactrim DS 800-160 MG 800-160 MG t} 800-160 MG Benzonatate Benzonatate No 1{capsu TID Benzonatat 200 MG 200 MG le} e 200 MG Restasis Restasis No 1{drop_ BID Restasis 0.05 % 0.05 % into_af 0.05 % fected_ eye} Methotrexat Methotrexat No Methotrexa e 2.5 MG e 2.5 MG te 2.5 MG Zofran 4 MG Zofran 4 MG No 1{table QD Zofran 4 t} MG Benzonatate Benzonatate No 1{capsu TID Benzonatat 200 MG 200 MG le} e 200 MG predniSONE predniSONE No 1{table QD predniSONE 5 MG 5 MG t} 5 MG Enbrel Enbrel No Enbrel SureClick SureClick SureClick 50 MG/ML 50 MG/ML 50 MG/ML Azithromyci Azithromyci No QD Azithromyc n 250 MG n 250 MG in 250 MG Pyridium Pyridium No 1{table TID Pyridium 200 MG 200 MG t_after 200 MG _meals} Restasis Restasis No 1{drop_ BID Restasis 0.05 % 0.05 % into_af 0.05 % fected_ eye} Bactrim DS Bactrim DS No 1{table BID Bactrim DS 800-160 MG 800-160 MG t} 800-160 MG Methotrexat Methotrexat No Methotrexa e 2.5 MG e 2.5 MG te 2.5 MG Pyridium Pyridium No 1{table TID Pyridium 200 MG 200 MG t_after 200 MG _meals} Azithromyci Azithromyci No QD Azithromyc n 250 MG n 250 MG in 250 MG Enbrel Enbrel No Enbrel SureClick SureClick SureClick 50 MG/ML 50 MG/ML 50 MG/ML predniSONE predniSONE No 1{table QD predniSONE 5 MG 5 MG t} 5 MG Restasis Restasis No 1{drop_ BID Restasis 0.05 % 0.05 % into_af 0.05 % fected_ eye} Zofran 4 MG Zofran 4 MG No 1{table QD Zofran 4 t} MG Benzonatate Benzonatate No 1{capsu TID Benzonatat 200 MG 200 MG le} e 200 MG Bactrim DS Bactrim DS No 1{table BID Bactrim DS 800-160 MG 800-160 MG t} 800-160 MG Methotrexat Methotrexat No Methotrexa e 2.5 MG e 2.5 MG te 2.5 MG Pyridium Pyridium No 1{table TID Pyridium 200 MG 200 MG t_after 200 MG _meals} Azithromyci Azithromyci No QD Azithromyc n 250 MG n 250 MG in 250 MG Enbrel Enbrel No Enbrel SureClick SureClick SureClick 50 MG/ML 50 MG/ML 50 MG/ML predniSONE predniSONE No 1{table QD predniSONE 5 MG 5 MG t} 5 MG Restasis Restasis No 1{drop_ BID Restasis 0.05 % 0.05 % into_af 0.05 % fected_ eye} Zofran 4 MG Zofran 4 MG No 1{table QD Zofran 4 t} MG Benzonatate Benzonatate No 1{capsu TID Benzonatat 200 MG 200 MG le} e 200 MG Bactrim DS Bactrim DS No 1{table BID Bactrim DS 800-160 MG 800-160 MG t} 800-160 MG Methotrexat Methotrexat No Methotrexa e 2.5 MG e 2.5 MG te 2.5 MG Azithromyci Azithromyci No QD Azithromyc n 250 MG n 250 MG in 250 MG Pyridium Pyridium No 1{table TID Pyridium 200 MG 200 MG t_after 200 MG _meals} predniSONE predniSONE No 1{table QD predniSONE 5 MG 5 MG t} 5 MG Enbrel Enbrel No Enbrel SureClick SureClick SureClick 50 MG/ML 50 MG/ML 50 MG/ML Zofran 4 MG Zofran 4 MG No 1{table QD Zofran 4 t} MG Restasis Restasis No 1{drop_ BID Restasis 0.05 % 0.05 % into_af 0.05 % fected_ eye} Benzonatate Benzonatate No 1{capsu TID Benzonatat 200 MG 200 MG le} e 200 MG Methotrexat Methotrexat No Methotrexa e 2.5 MG e 2.5 MG te 2.5 MG Bactrim DS Bactrim DS No 1{table BID Bactrim DS 800-160 MG 800-160 MG t} 800-160 MG Azithromyci Azithromyci No QD Azithromyc n 250 MG n 250 MG in 250 MG Pyridium Pyridium No 1{table TID Pyridium 200 MG 200 MG t_after 200 MG _meals} predniSONE predniSONE No 1{table QD predniSONE 5 MG 5 MG t} 5 MG Enbrel Enbrel No Enbrel SureClick SureClick SureClick 50 MG/ML 50 MG/ML 50 MG/ML Zofran 4 MG Zofran 4 MG No 1{table QD Zofran 4 t} MG Restasis Restasis No 1{drop_ BID Restasis 0.05 % 0.05 % into_af 0.05 % fected_ eye} Benzonatate Benzonatate No 1{capsu TID Benzonatat 200 MG 200 MG le} e 200 MG Methotrexat Methotrexat No Methotrexa e 2.5 MG e 2.5 MG te 2.5 MG Bactrim DS Bactrim DS No 1{table BID Bactrim DS 800-160 MG 800-160 MG t} 800-160 MG Azithromyci Azithromyci No QD Azithromyc n 250 MG n 250 MG in 250 MG predniSONE predniSONE No 1{table QD predniSONE 5 MG 5 MG t} 5 MG Bactrim DS Bactrim DS No 1{table BID Bactrim DS 800-160 MG 800-160 MG t} 800-160 MG Methotrexat Methotrexat No Methotrexa e 2.5 MG e 2.5 MG te 2.5 MG Enbrel Enbrel No Enbrel SureClick SureClick SureClick 50 MG/ML 50 MG/ML 50 MG/ML Benzonatate Benzonatate No 1{capsu TID Benzonatat 200 MG 200 MG le} e 200 MG Zofran 4 MG Zofran 4 MG No 1{table QD Zofran 4 t} MG Pyridium Pyridium No 1{table TID Pyridium 200 MG 200 MG t_after 200 MG _meals} Restasis Restasis No 1{drop_ BID Restasis 0.05 % 0.05 % into_af 0.05 % fected_ eye} valACYclovi valACYclovi No 1{table TID valACYclov r HCl 1 GM r HCl 1 GM t} ir HCl 1 GM Benzonatate Benzonatate No 1{capsu TID Benzonatat 200 MG 200 MG le} e 200 MG Lidocaine 5 Lidocaine 5 No 1{appli TID Lidocaine % % cation_ 5 % to_affe cted_ar ea_as_n eeded} Bactrim DS Bactrim DS No 1{table BID Bactrim DS 800-160 MG 800-160 MG t} 800-160 MG Zofran 4 MG Zofran 4 MG No 1{table QD Zofran 4 t} MG Enbrel Enbrel No Enbrel SureClick SureClick SureClick 50 MG/ML 50 MG/ML 50 MG/ML predniSONE predniSONE No 1{table QD predniSONE 5 MG 5 MG t} 5 MG Pyridium Pyridium No 1{table TID Pyridium 200 MG 200 MG t_after 200 MG _meals} Restasis Restasis No 1{drop_ BID Restasis 0.05 % 0.05 % into_af 0.05 % fected_ eye} Azithromyci Azithromyci No QD Azithromyc n 250 MG n 250 MG in 250 MG Gabapentin Gabapentin No BID Gabapentin 300 MG 300 MG 300 MG Methotrexat Methotrexat No Methotrexa e 2.5 MG e 2.5 MG te 2.5 MG valACYclovi valACYclovi No 1{table TID valACYclov r HCl 1 GM r HCl 1 GM t} ir HCl 1 GM Benzonatate Benzonatate No 1{capsu TID Benzonatat 200 MG 200 MG le} e 200 MG Lidocaine 5 Lidocaine 5 No 1{appli TID Lidocaine % % cation_ 5 % to_affe cted_ar ea_as_n eeded} Bactrim DS Bactrim DS No 1{table BID Bactrim DS 800-160 MG 800-160 MG t} 800-160 MG Zofran 4 MG Zofran 4 MG No 1{table QD Zofran 4 t} MG Enbrel Enbrel No Enbrel SureClick SureClick SureClick 50 MG/ML 50 MG/ML 50 MG/ML predniSONE predniSONE No 1{table QD predniSONE 5 MG 5 MG t} 5 MG Pyridium Pyridium No 1{table TID Pyridium 200 MG 200 MG t_after 200 MG _meals} Restasis Restasis No 1{drop_ BID Restasis 0.05 % 0.05 % into_af 0.05 % fected_ eye} Azithromyci Azithromyci No QD Azithromyc n 250 MG n 250 MG in 250 MG Gabapentin Gabapentin No BID Gabapentin 300 MG 300 MG 300 MG Methotrexat Methotrexat No Methotrexa e 2.5 MG e 2.5 MG te 2.5 MG valACYclovi valACYclovi No 1{table TID valACYclov r HCl 1 GM r HCl 1 GM t} ir HCl 1 GM Benzonatate Benzonatate No 1{capsu TID Benzonatat 200 MG 200 MG le} e 200 MG Lidocaine 5 Lidocaine 5 No 1{appli TID Lidocaine % % cation_ 5 % to_affe cted_ar ea_as_n eeded} Bactrim DS Bactrim DS No 1{table BID Bactrim DS 800-160 MG 800-160 MG t} 800-160 MG Zofran 4 MG Zofran 4 MG No 1{table QD Zofran 4 t} MG Enbrel Enbrel No Enbrel SureClick SureClick SureClick 50 MG/ML 50 MG/ML 50 MG/ML predniSONE predniSONE No 1{table QD predniSONE 5 MG 5 MG t} 5 MG Pyridium Pyridium No 1{table TID Pyridium 200 MG 200 MG t_after 200 MG _meals} Restasis Restasis No 1{drop_ BID Restasis 0.05 % 0.05 % into_af 0.05 % fected_ eye} Azithromyci Azithromyci No QD Azithromyc n 250 MG n 250 MG in 250 MG Gabapentin Gabapentin No BID Gabapentin 300 MG 300 MG 300 MG Methotrexat Methotrexat No Methotrexa e 2.5 MG e 2.5 MG te 2.5 MG valACYclovi valACYclovi No 1{table TID valACYclov r HCl 1 GM r HCl 1 GM t} ir HCl 1 GM Benzonatate Benzonatate No 1{capsu TID Benzonatat 200 MG 200 MG le} e 200 MG Lidocaine 5 Lidocaine 5 No 1{appli TID Lidocaine % % cation_ 5 % to_affe cted_ar ea_as_n eeded} Bactrim DS Bactrim DS No 1{table BID Bactrim DS 800-160 MG 800-160 MG t} 800-160 MG Zofran 4 MG Zofran 4 MG No 1{table QD Zofran 4 t} MG Enbrel Enbrel No Enbrel SureClick SureClick SureClick 50 MG/ML 50 MG/ML 50 MG/ML predniSONE predniSONE No 1{table QD predniSONE 5 MG 5 MG t} 5 MG Pyridium Pyridium No 1{table TID Pyridium 200 MG 200 MG t_after 200 MG _meals} Restasis Restasis No 1{drop_ BID Restasis 0.05 % 0.05 % into_af 0.05 % fected_ eye} Azithromyci Azithromyci No QD Azithromyc n 250 MG n 250 MG in 250 MG Gabapentin Gabapentin No BID Gabapentin 300 MG 300 MG 300 MG Methotrexat Methotrexat No Methotrexa e 2.5 MG e 2.5 MG te 2.5 MG Pyridium Pyridium No 1{table TID Pyridium 200 MG 200 MG t_after 200 MG _meals} valACYclovi valACYclovi No 1{table TID valACYclov r HCl 1 GM r HCl 1 GM t} ir HCl 1 GM Benzonatate Benzonatate No 1{capsu TID Benzonatat 200 MG 200 MG le} e 200 MG Lidocaine 5 Lidocaine 5 No 1{appli TID Lidocaine % % cation_ 5 % to_affe cted_ar ea_as_n eeded} Bactrim DS Bactrim DS No 1{table BID Bactrim DS 800-160 MG 800-160 MG t} 800-160 MG Zofran 4 MG Zofran 4 MG No 1{table QD Zofran 4 t} MG Enbrel Enbrel No Enbrel SureClick SureClick SureClick 50 MG/ML 50 MG/ML 50 MG/ML predniSONE predniSONE No 1{table QD predniSONE 5 MG 5 MG t} 5 MG Pyridium Pyridium No 1{table TID Pyridium 200 MG 200 MG t_after 200 MG _meals} Azithromyci Azithromyci No QD Azithromyc n 250 MG n 250 MG in 250 MG Restasis Restasis No 1{drop_ BID Restasis 0.05 % 0.05 % into_af 0.05 % fected_ eye} Azithromyci Azithromyci No QD Azithromyc n 250 MG n 250 MG in 250 MG Gabapentin Gabapentin No BID Gabapentin 300 MG 300 MG 300 MG Methotrexat Methotrexat No Methotrexa e 2.5 MG e 2.5 MG te 2.5 MG Enbrel Enbrel No Enbrel SureClick SureClick SureClick 50 MG/ML 50 MG/ML 50 MG/ML predniSONE predniSONE No 1{table QD predniSONE 5 MG 5 MG t} 5 MG Restasis Restasis No 1{drop_ BID Restasis 0.05 % 0.05 % into_af 0.05 % fected_ eye} Zofran 4 MG Zofran 4 MG No 1{table QD Zofran 4 t} MG Benzonatate Benzonatate No 1{capsu TID Benzonatat 200 MG 200 MG le} e 200 MG Bactrim DS Bactrim DS No 1{table BID Bactrim DS 800-160 MG 800-160 MG t} 800-160 MG Methotrexat Methotrexat No Methotrexa e 2.5 MG e 2.5 MG te 2.5 MG Pyridium Pyridium No 1{table TID Pyridium 200 MG 200 MG t_after 200 MG _meals} Azithromyci Azithromyci No QD Azithromyc n 250 MG n 250 MG in 250 MG Enbrel Enbrel No Enbrel SureClick SureClick SureClick 50 MG/ML 50 MG/ML 50 MG/ML Immunizations Ordered Immunization Filled Immunization Date Status Commen ts Source Name Name Adacel (Tdap) Adacel (Tdap) 2021-05-17 Completed Common S pirit 13:48:00 [facility] Adacel (Tdap) Adacel (Tdap) 2021-05-17 Completed Common S pirit 13:48:00 - [facility] Adacel (Tdap) Adacel (Tdap) 2021-05-17 Completed Common S pirit 13:48:00 - [facility] Adacel (Tdap) Adacel (Tdap) 2021-05-17 Completed Common S pirit 13:48:00 - [facility] Adacel (Tdap) Adacel (Tdap) 2021-05-17 Completed Common S pirit 13:48:00 - [facility] Adacel (Tdap) Adacel (Tdap) 2021-05-17 Completed Common S [facility]irit 13:48:00 - [facility] Adacel (Tdap) Adacel (Tdap) 2021-05-17 Completed Common S [facility] 13:48:00 - [facility] Adacel (Tdap) Adacel (Tdap) 2021-05-17 Completed Common S [facility]irit 13:48:00 - [facility] Adacel (Tdap) Adacel (Tdap) 2021-05-17 Completed Common S [facility]irit 13:48:00 - [facility] Adacel (Tdap) Adacel (Tdap) 2021-05-17 Completed Common S pirit 13:48:00 - [facility] Adacel (Tdap) Adacel (Tdap) 2021-05-17 Completed Common S pirit 13:48:00 - [facility] Adacel (Tdap) Adacel (Tdap) 2021-05-17 Completed Common S [facility]irit 13:48:00 - [facility] Adacel (Tdap) Adacel (Tdap) 2021-05-17 Completed Common S [facility] 13:48:00 - [facility] Adacel (Tdap) Adacel (Tdap) 2021-05-17 Completed Common S [facility] 13:48:00 - [facility] Adacel (Tdap) Adacel (Tdap) 2021-05-17 Completed Common S pirit 13:48:00 - [facility] Adacel (Tdap) Adacel (Tdap) 2021-05-17 Completed Common S [facility] 13:48:00 - [facility] Adacel (Tdap) Adacel (Tdap) 2021-05-17 Completed Common S [facility] 13:48:00 - [facility] Adacel (Tdap) Adacel (Tdap) 2021-05-17 Completed Common S [facility] 13:48:00 - [facility] Adacel (Tdap) Adacel (Tdap) 2021-05-17 Completed Common S [facility] 13:48:00 - [facility] Adacel (Tdap) Adacel (Tdap) 2021-05-17 Completed Common S [facility] 13:48:00 - [facility] Adacel (Tdap) Adacel (Tdap) 2021-05-17 Completed Common S [facility] 13:48:00 - [facility] Adacel (Tdap) Adacel (Tdap) 2021-05-17 Completed Common S [facility] 13:48:00 - [facility] Adacel (Tdap) Adacel (Tdap) 2021-05-17 Completed Common S [facility] 13:48:00 - [facility] Adacel (Tdap) Adacel (Tdap) 2021-05-17 Completed Common S pirit 13:48:00 - [facility] Adacel (Tdap) Adacel (Tdap) 2021-05-17 Completed Common S pirit 13:48:00 - [facility] Adacel (Tdap) Adacel (Tdap) 2021-05-17 Completed Common S [facility] 13:48:00 - [facility] Adacel (Tdap) Adacel (Tdap) 2021-05-17 Completed Common S [facility] 13:48:00 - [facility] Adacel (Tdap) Adacel (Tdap) 2021-05-17 Completed Common S [facility]irit 13:48:00 - [facility] Adacel (Tdap) Adacel (Tdap) 2021-05-17 Completed Common S [facility]irit 13:48:00 - [facility] Adacel (Tdap) Adacel (Tdap) 2021-05-17 Completed Common S pirit 13:48:00 - [facility] Adacel (Tdap) Adacel (Tdap) 2021-05-17 Completed Common S pirit 13:48:00 - [facility] Adacel (Tdap) Adacel (Tdap) 2021-05-17 Completed Common S pirit 13:48:00 - [facility] Adacel (Tdap) Adacel (Tdap) 2021-05-17 Completed Common S pirit 13:48:00 - [facility] Adacel (Tdap) Adacel (Tdap) 2021-05-17 Completed Common S pirit 13:48:00 - [facility] Adacel (Tdap) Adacel (Tdap) 2021-05-17 Completed Common S pirit 13:48:00 - [facility] Adacel (Tdap) Adacel (Tdap) 2021-05-17 Completed Common S pirit 13:48:00 - [facility] Adacel (Tdap) Adacel (Tdap) 2021-05-17 Completed Common S [facility]irit 13:48:00 [facility] Vital Signs Vital Name Observation Time Observation Value Comments Source height 2022-10-01 15:20:00 65 [in_i] [facility]22-10-01 15:20:00 145.5 [lb_av] Common [facility] temperature 2022-10-01 15:20:00 97.5 [degF] [facility] pirit [facility] bmi 2022-10-01 15:20:00 24.21 kg/m2 [facility] S pirit [facility] oximetry 2022-10-01 15:20:00 99 % [facility] S pirit [facility] respiratory rate 2022-10-01 15:20:00 18 /min Comm on Spirit [facility] blood pressure 2022-10-01 15:20:00 105 mm[Hg] Common [facility] - systolic [facility] blood pressure 2022-10-01 15:20:00 63 mm[Hg] Common [facility] - diastolic [facility] height 2022-08-13 08:30:00 65 [in_i] Common S pirit [facility] weight 2022-08-13 08:30:00 147.6 [lb_av] Common [facility] temperature 2022-08-13 08:30:00 97.5 [degF] Common S pirit [facility] bmi 2022-08-13 08:30:00 24.56 kg/m2 Common S [facility] oximetry 2022-08-13 08:30:00 100 % Common S [facility] respiratory rate 2022-08-13 08:30:00 17 /min Comm on [facility] blood pressure 2022-08-13 08:30:00 102 mm[Hg] Common [facility] - systolic [facility] blood pressure 2022-08-13 08:30:00 69 mm[Hg] [facility] - diastolic [facility] height 2022-08-07 10:00:00 65 [in_i] Common [facility] weight 2022-08-07 10:00:00 151 [lb_av] Common S pirit [facility] temperature 2022-08-07 10:00:00 97.5 [degF] [facility] 2022-08-07 10:00:00 25.12 kg/m2 [facility] oximetry 2022-08-07 10:00:00 98 % Common S [facility] respiratory rate 2022-08-07 10:00:00 16 /min Comm on [facility] blood pressure 2022-08-07 10:00:00 118 mm[Hg] [facility] - systolic [facility] blood pressure 2022-08-07 10:00:00 71 mm[Hg] [facility] - diastolic [facility] height 2022-07-20 10:00:00 65 [in_i] [facility] weight 2022-07-20 10:00:00 148.9 [lb_av] Common [facility] temperature 2022-07-20 10:00:00 97.8 [degF] Common [facility] bmi 2022-07-20 10:00:00 24.78 kg/m2 [facility] oximetry 2022-07-20 10:00:00 99 % [facility] respiratory rate 2022-07-20 10:00:00 18 /min Comm on [facility] blood pressure 2022-07-20 10:00:00 126 mm[Hg] Common [facility] - systolic [facility] blood pressure 2022-07-20 10:00:00 71 mm[Hg] Common [facility] - diastolic [facility] height 2022-06-11 16:40:00 65 [in_i] Common [facility] weight 2022-06-11 16:40:00 145 [lb_av] [facility] temperature 2022-06-11 16:40:00 98 [degF] Common [facility] bmi 2022-06-11 16:40:00 24.13 kg/m2 [facility] height 2022-06-08 09:30:00 65 [in_i] [facility] weight 2022-06-08 09:30:00 146 [lb_av] [facility] temperature 2022-06-08 09:30:00 97.6 [degF] [facility] bmi 2022-06-08 09:30:00 24.29 kg/m2 [facility] oximetry 2022-06-08 09:30:00 99 % Common [facility] respiratory rate 2022-06-08 09:30:00 16 /min Comm on [facility] blood pressure 2022-06-08 09:30:00 101 mm[Hg] Common [facility] - systolic [facility] blood pressure 2022-06-08 09:30:00 63 mm[Hg] Common [facility] - diastolic [facility] height 2022-06-01 09:30:00 65 [in_i] Common [facility] weight 2022-06-01 09:30:00 149 [lb_av] Common [facility] temperature 2022-06-01 09:30:00 98 [degF] Common [facility] bmi 2022-06-01 09:30:00 24.79 kg/m2 Common S [facility] oximetry 2022-06-01 09:30:00 99 % Common [facility] respiratory rate 2022-06-01 09:30:00 18 /min Comm on [facility] blood pressure 2022-06-01 09:30:00 126 mm[Hg] Common [facility] - systolic [facility] blood pressure 2022-06-01 09:30:00 71 mm[Hg] Common [facility] - diastolic [facility] height 2022-05-10 10:00:00 65 [in_i] Common [facility] weight 2022-05-10 10:00:00 149.3 [lb_av] [facility] temperature 2022-05-10 10:00:00 98.1 [degF] Common [facility] bmi 2022-05-10 10:00:00 24.84 kg/m2 [facility] oximetry 2022-05-10 10:00:00 94 % [facility] respiratory rate 2022-05-10 10:00:00 17 /min Comm on [facility] blood pressure 2022-05-10 10:00:00 112 mm[Hg] [facility] - systolic [facility] blood pressure 2022-05-10 10:00:00 68 mm[Hg] Common [facility] - diastolic [facility] height 2022-03-28 08:40:00 65 [in_i] Common [facility] weight 2022-03-28 08:40:00 159 [lb_av] Common [facility] bmi 2022-03-28 08:40:00 26.46 kg/m2 Common S [facility] height 2021-12-27 14:40:00 65 [in_i] Common S [facility] weight 2021-12-27 14:40:00 159 [lb_av] Common [facility] bmi 2021-12-27 14:40:00 26.46 kg/m2 Common S [facility] height 2021-12-15 10:30:00 65 [in_i] Common S [facility] weight 2021-12-15 10:30:00 159.2 [lb_av] [facility] temperature 2021-12-15 10:30:00 97.6 [degF] [facility] bmi 2021-12-15 10:30:00 26.49 kg/m2 [facility] oximetry 2021-12-15 10:30:00 98 % [facility] respiratory rate 2021-12-15 10:30:00 18 /min Comm on [facility] blood pressure 2021-12-15 10:30:00 118 mm[Hg] [facility] systolic [facility] blood pressure 2021-12-15 10:30:00 62 mm[Hg] [facility] diastolic [facility] height 2021-10-25 08:30:00 65 [in_i] Common [facility] weight 2021-10-25 08:30:00 159 [lb_av] [facility] temperature 2021-10-25 08:30:00 97.1 [degF] [facility] bmi 2021-10-25 08:30:00 26.46 kg/m2 [facility] oximetry 2021-10-25 08:30:00 100 % [facility] respiratory rate 2021-10-25 08:30:00 20 /min Comm on [facility] blood pressure 2021-10-25 08:30:00 108 mm[Hg] [facility] - systolic [facility] blood pressure 2021-10-25 08:30:00 57 mm[Hg] [facility] - diastolic [facility] height 2021-10-04 11:40:00 65 [in_i] [facility] weight 2021-10-04 11:40:00 150 [lb_av] [facility] temperature 2021-10-04 11:40:00 98 [degF] [facility] bmi 2021-10-04 11:40:00 24.96 kg/m2 [facility] height 2021-08-16 15:00:00 65 [in_i] [facility] weight 2021-08-16 15:00:00 154.0 [lb_av] [facility] temperature 2021-08-16 15:00:00 97.2 [degF] [facility] bmi 2021-08-16 15:00:00 25.62 kg/m2 [facility] oximetry 2021-08-16 15:00:00 98 % [facility] respiratory rate 2021-08-16 15:00:00 17 /min Comm on [facility] blood pressure 2021-08-16 15:00:00 112 mm[Hg] Common [facility] - systolic [facility] blood pressure 2021-08-16 15:00:00 70 mm[Hg] Common [facility] - diastolic [facility] Temperature 2018-10-23 14:04:00 98.2 [degF] [facility] Heart Rate 2018-10-23 14:04:00 81 /min [facility] BP Systolic 2018-10-23 14:04:00 105 mm[Hg] [facility] BP Diastolic 2018-10-23 14:04:00 75 mm[Hg] [facility] Height 2018-10-23 14:04:00 65 [in_us] [facility] Weight 2018-10-23 14:04:00 147 [lb_av] [facility] Body Mass Index 2018-10-23 14:04:00 24.46 kg/m2 [facility] Calculated Procedures This patient has no known procedures. Encounters Start End Encounter Admission Attending Care Care Encounter Source Date/Time Date/Time Type Type Clinicians Facility Department ID 2022-06-08 Outpatient [facility], STLMLC STLMLC [id number] Common 09:09:01 Lasha [facility] 2022-03-28 Outpatient [facility], STLMLC STLMLC [id number] Common 08:37:01 Lasha [facility] 2021-12-08 Outpatient [facility], STLMLC STLMLC [id number] Common 12:02:01 Lasha [facility] 2021-11-29 Outpatient [facility], STLMLC STLMLC [id number] Common 14:18:52 Lasha [id number] [facility] 2021-11-29 Outpatient [facility]ard, STLMLC STLMLC [id number] Common 14:00:24 Lasha [address] [facility] 2021-11-29 Outpatient [facility], STLMLC STLMLC [id number] Common 13:50:52 Lasha [address] [facility] 2021-11-29 Outpatient [facility], STLMLC STLMLC [id number] Common 13:37:22 Lasha [address] [facility] 2021-11-29 Outpatient [facility], STLMLC STLMLC [id number] Common 13:25:59 Lasha [address] [facility] 2022-11-06 2022-11-06 (TEL) STLMLC STLMLC [id number] Co mmon 00:00:00 00:00:00 [facility] 2022-11-05 2022-11-05 (TEL) STLMLC STLMLC [id number] Co mmon 00:00:00 00:00:00 [facility] 2022-10-02 2022-10-02 (TEL) STLMLC STLMLC [id number] Co mmon 00:00:00 00:00:00 [facility] 2022-10-01 2022-10-01 (TEL) STLMLC STLMLC [id number] Co mmon 00:00:00 00:00:00 [facility] 2022-10-01 2022-10-01 OFFICE STLMLC STLMLC [id number] Co mmon 00:00:00 00:00:00 VISIT Spirit ESTAB PT - [facility] LEVEL 4 [facility] 2022-08-13 2022-08-13 OFFICE STLMLC STLMLC [id number] Co mmon 00:00:00 00:00:00 VISIT EST Spir it PT LEVEL 3 [facility] 2022-08-07 2022-08-07 (TEL) STLMLC STLMLC [id number] Co mmon 00:00:00 00:00:00 [facility] 2022-08-07 2022-08-07 OFFICE STLMLC STLMLC [id number] Co mmon 00:00:00 00:00:00 VISIT EST Spir it PT LEVEL 3 [facility] 2022-08-03 2022-08-03 (TEL) STLMLC STLMLC [id number] Co mmon 00:00:00 00:00:00 [facility] 2022-07-27 2022-07-27 (INJ) STLMLC STLMLC [id number] Co mmon 00:00:00 00:00:00 Injection Spir it [facility] 2022-07-20 2022-07-20 OFFICE STLMLC STLMLC [id number] Co mmon 00:00:00 00:00:00 VISIT EST Spir it PT LEVEL 3 [facility] 2022-06-29 2022-06-29 (TEL) STLMLC STLMLC [id number] Co mmon 00:00:00 00:00:00 [facility] 2022-06-11 2022-06-11 OFFICE STLMLC STLMLC [id number] Co mmon 00:00:00 00:00:00 VISIT EST Spir it PT LEVEL 3 [facility] 2022-06-08 2022-06-08 ([place]) Nurse STLMLC STLMLC [id number] Common 00:00:00 00:00:00 Visit [facility] 2022-06-01 2022-06-01 ([place]) Nurse STLMLC STLMLC [id number] Common 00:00:00 00:00:00 Visit [facility] 2022-05-25 2022-05-25 ([place]) Nurse STLMLC STLMLC [id number] Common 00:00:00 00:00:00 Visit [facility] 2022-05-10 2022-05-10 PREV VISIT STLMLC STLMLC [id number] Common 00:00:00 00:00:00 EST A[age] Jeff [age] [facility] 2022-05-10 2022-05-10 (INJ) STLMLC STLMLC [id number] Co mmon 00:00:00 00:00:00 Injection Spir [facility] 2022-03-28 2022-03-28 OFFICE STLMLC STLMLC [id number] Co mmon 00:00:00 00:00:00 VISIT EST Spir it PT LEVEL 3 [facility] 2022-03-28 2022-03-28 (TEL) STLMLC STLMLC [id number] Co mmon 00:00:00 00:00:00 [facility] 2022-01-19 2022-01-19 (INJ) STLMLC STLMLC [id number] Co mmon 00:00:00 00:00:00 Injection Spir [facility] 2022-01-04 2022-01-04 (INJ) STLMLC STLMLC [id number] Co mmon 00:00:00 00:00:00 Injection Spir [facility] 2021-12-27 2021-12-27 OFFICE STLMLC STLMLC [id number] Co mmon 00:00:00 00:00:00 VISIT EST Spir it PT LEVEL 3 [facility] 2021-12-25 2021-12-25 (TEL) STLMLC STLMLC [id number] Co mmon 00:00:00 00:00:00 [facility] 2021-12-22 2021-12-22 (INJ) STLMLC STLMLC [id number] Co mmon 00:00:00 00:00:00 Injection Spir it - [facility] 2021-12-15 2021-12-15 OFFICE STLMLC STLMLC [id number] Co mmon 00:00:00 00:00:00 VISIT Spirit ESTAB PT - [facility] LEVEL 1 [facility] 2021-12-11 2021-12-11 (TEL) STLMLC STLMLC [id number] Co mmon 00:00:00 00:00:00 [facility] 2021-12-08 2021-12-08 (TEL) STLMLC STLMLC [id number] Co mmon 00:00:00 00:00:00 [facility] 2021-10-25 2021-10-25 OFFICE STLMLC STLMLC [id number] Co mmon 00:00:00 00:00:00 VISIT Spirit ESTAB PT - [facility] LEVEL 2 [facility] 2021-10-04 2021-10-04 OFFICE STLMLC STLMLC [id number] Co mmon 00:00:00 00:00:00 VISIT EST Spir it PT LEVEL 3 - [facility] 2021-08-16 2021-08-16 OFFICE STLMLC STLMLC [id number] Co mmon 00:00:00 00:00:00 VISIT EST Spir it PT LEVEL 3 - [facility] 2021-08-16 2021-08-16 (TEL) STLMLC STLMLC [id number] Co mmon 00:00:00 00:00:00 [facility] 2021-08-03 2021-08-03 Outpatient STLMLC STLMLC [id number] Common 00:00:00 00:00:00 [facility] 2021-07-26 2021-07-26 Outpatient STLMLC STLMLC [id number] Common 00:00:00 00:00:00 [facility] 2021-07-24 2021-07-24 Outpatient STLMLC STLMLC [id number] Common 00:00:00 00:00:00 [facility] 2021-07-20 2021-07-20 Outpatient STLMLC STLMLC [id number] Common 00:00:00 00:00:00 [facility] 2021-06-15 2021-06-15 Outpatient STLMLC STLMLC [id number] Common 00:00:00 00:00:00 [facility] 2021-06-02 2021-06-02 Outpatient STLMLC STLMLC [id number] Common 00:00:00 00:00:00 [facility] 2021-05-17 2021-05-17 Outpatient STLMLC STLMLC [id number] Common 00:00:00 00:00:00 [facility] 2019-04-07 2019-04-07 Emergency [facility] [address] [facility] 13:34:00 13:34:00 2018-10-23 2018-10-23 Appointmen GENERAL, UTP General [id number] [place] 14:00:00 14:00:00 t; SERVICE Surgery Physic i GENERAL, ans SERVICE Results Test Description Test Time Test Comments Results Result Comments Source Chest Pa And Lat (2 Chest Pa And Lat Views) (2 Views)
--- NOTE | 2022-11-19 13:18 | RAD REPORT ---
EXAM DESCRIPTION: US - Abdomen Exam Limited - 11/19/2022 1:09 pm CLINICAL HISTORY: ABD PAIN COMPARISON: Abdomen Exam Limited dated 07/20/2021 FINDINGS: The gallbladder demonstrates no gallstones. No pericholecystic fluid or gallbladder wall t hickening. The common bile duct is normal measuring 3 mm. The liver demonstrates no findings of intrahepatic biliary dilatation. IMPRESSION: Unremarkable examination.
[2022-11-19 13:19] LABS: Absolute Lymphocytes (CBC) 1.6 K/uL (0.7-4.9); Hematocrit 37.5 % (36.0-45.0); Lymphocytes % 30.1 % (15.3-44.8); MCV 93.4 fL (80-100); MPV 9.7 fL (7.6-11.3); RBC Red Blood Cell Count 4.02 M/uL (3.86-4.86)
[2022-11-19 13:28] LABS: Bilirubin Total 0.8 mg/dL (0.2-1.0); Protein, Total 7.2 g/dL (6.4-8.2)
[2022-11-19] MEDS ORDERED: MORPHINE 4 MG/ML SYR ONE (13:34)
[2022-11-19] MEDS ORDERED: NA CHLORIDE 0.9% 1,000 ML ONE (13:34)
[2022-11-19] MEDS ORDERED: ONDANSETRON 4 MG/2 ML VIAL ONE (13:34)
[2022-11-19 13:40] LABS: Urine Blood 1+ (Negative); Urine Glucose Negative (Negative); Urine Protein Negative (Negative); Urine pH 5.5 (5.0-7.0)
--- NOTE | 2022-11-19 14:07 | RAD REPORT ---
EXAM DESCRIPTION: CTAbdomen Pelvis W Contrast - 11/19/2022 1:55 pm CLINICAL HISTORY: Abdominal pain. abdominal pain, nausea COMPARISON: Abdomen Pelvis W Contrast dated 07/20/2021; Abdomen Pelvis W Contrast dated 6 TECHNIQUE: Biphasic CT imaging of the abdomen and pelvis was performed with 100 ml non-ionic IV cont rast. All CT scans are performed using dose optimization technique as appropriate and may include automated exposure control or mA/KV adjustment according to patient size. FINDINGS: The lung bases are clear. The liver, spleen, pancreas, adrenal glands and kidneys are within normal limits. No bowel obstruction, free air, free fluid or abscess. The appendix is not identified as a discrete structure, however, no secondary findings of appendicitis are identified. No evidence of significan t lymphadenopathy. No suspicious bony findings. IMPRESSION: No acute intra-abdominal or pelvic finding.
--- NOTE | 2022-11-19 14:17 | RAD REPORT ---
EXAM DESCRIPTION: CT - Chest For Pe Angio - 11/19/2022 1:55 pm CLINICAL HISTORY: Chest pain. thoracic pain COMPARISON: Abdomen Pelvis W Contrast dated 11/19/2022 TECHNIQUE: CT angiogram of the pulmonary arteries was performed with MIP. All CT scans are performed using dose optimization technique as appropriate and may include automated exposure control or mA/KV adjustment according to patient size. FINDINGS: No evidence of pulmonary thromboembolism. No acute aortic finding demonstrated. The lungs are clear. No significant pericardial or pleural fluid. No concerning bony finding. IMPRESSION: No evidence of pulmonary thromboembolism. No acute lung findings.
[2022-11-19] MEDS ORDERED: MAGNES/ALUMIN/SIMET 30ML UCUP ONE (14:35)
[2022-11-19] MEDS ORDERED: LIDOCAINE VISCOUS 2% SOLN 15 ML UDC ONE (14:35)
--- NOTE | 2022-11-19 15:04 | EDPHYS ---
Physician Documentation [facility] Name: Kelly Marin Age: 42 yrs Sex: Female : 1980 Arrival Date: 11/19/2022 Time: 12:23 Bed 11 Private MD: Lasha Stoddard ED Physician Kalia Jimenez HPI: 11/19 12:51 This 42 yrs old Female presents to ER via Ambulatory with complaints of Back jmm Pain, Abdominal Pain. 12:51 The patient presents with pain that is acute. Onset: The symptoms/episode jmm began/occurred gradually, 1 day(s) ago. The pain radiates to the abdomen. Associated signs and symptoms: Pertinent positives: abdominal pain, nausea, Pertinent negatives: fever, vomiting. Modifying factors: The patient symptoms are alleviated by nothing, the patient symptoms are aggravated by eating. The patient has not experienced similar symptoms in the past. This is a 42 year old female with a history of ra, that presents to the ED with complaints of epigastric pain which radiates into her back. Patient still has a gallbladder. Denies fever, vomiting, diarrhea. . 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 - Social history:: Smoking status: Patient denies any tobacco usage or history of. ROS: 12:51 Constitutional: Negative for fever, chills, and weight loss, Cardiovascular: Negative jmm for chest pain, palpitations, and edema, Respiratory: Negative for shortness of breath, cough, wheezing, and pleuritic chest pain. 12:51 Abdomen/GI: Positive for abdominal pain, nausea. 12:51 All other systems are negative. Exam: 12:51 Constitutional: This is a well developed, well nourished patient who is awake, alert, jmm and in no acute distress. Head/Face: atraumatic. Eyes: EOMI, no conjunctival erythema appreciated ENT: Moist Mucus Membranes Neck: Trachea midline, Supple Chest/axilla: Normal chest wall appearance and motion. Cardiovascular: Regular rate and rhythm. No edema appreciated Respiratory: Normal respirations, no respiratory distress appreciated 12:51 Back: Normal ROM Skin: General appearance color normal MS/ Extremity: Moves all extremities, no obvious deformities appreciated, no edema noted to the lower extremities Neuro: Awake and alert Psych: Behavior is normal, Mood is normal, Patient is cooperative and pleasant 12:51 Abdomen/GI: Inspection: abdomen appears normal, Bowel sounds: normal, Palpation: soft, mild abdominal tenderness, in the right upper quadrant. Vital Signs: 12:49 BP 121 / 97; Pulse 84; Resp 18; Temp 98.4; Pulse Ox 100% ; Weight 68.04 kg; Height 5 bb ft. 5 in. (165.10 cm); Pain 10/10; 14:09 BP 108 / 54; Pulse 80; Resp 17; Pulse Ox 100% on R/A; kr3 15:23 BP 92 / 63; Pulse 77; kr3 12:49 Body Mass Index 24.96 (68.04 kg, 165.10 cm) bb MDM: 12:51 Patient medically screened. [facility] 14:58 Data reviewed: vital signs, nurses notes. I considered the following discharge [facility] prescriptions or medication management in the emergency department Medications were administered in the Emergency Department. See MAR. ED course: Pain alleviated in the ED. Advised to follow up with GI abd gen surgery. Patient is otherwise given strict return precautions. patient understood and agrees with the plan of care. . 11/19 12:52 Order name: CBC with Diff; Complete Time: 13:30 [facility] 11/19 12:52 Order name: CMP; Complete Time: 13:30 [facility] 11/19 12:52 Order name: Lipase; Complete Time: 13:30 [facility] 11/19 12:52 Order name: US Abdomen Limited; Complete Time: 13:20 [facility] 11/19 13:39 Order name: Urine --Ancillary (enter results); Complete Time: 13:48 11/19 13:40 Order name: Urine Dipstick-Ancillary; Complete Time: 13:41 [facility] 11/19 12:52 Order name: IV Saline Lock; Complete Time: 13:14 [facility] 11/19 12:52 Order name: Labs collected and sent; Complete Time: 13:14 [facility] 11/19 13:22 Order name: CT Chest For PE Angio; Complete Time: 14:18 [facility] 11/19 13:22 Order name: CT Abd/Pelvis - IV Contrast Only; Complete Time: 14:18 [facility] 11/19 12:52 Order name: Urine Dipstick-Ancillary (obtain specimen); Complete Time: 13:42 [facility] 11/19 12:52 Order name: Urine Test (obtain specimen); Complete Time: 13:42 [facility] Administered Medications: 14:08 Drug: NS 0.9% 1000 ml Route: IV; Rate: 1 bolus; Site: right antecubital; kr3 15:28 Follow up: Response: No adverse reaction; IV Status: Completed infusion; IV Intake: kr3 1000ml 14:08 Drug: Zofran (Ondansetron) 4 mg Route: IVP; Site: right antecubital; kr3 15:28 Follow up: Response: No adverse reaction kr3 14:08 Drug: morphine 4 mg Route: IVP; Infused Over: 4 mins; Site: right antecubital; kr3 15:29 Follow up: Response: No adverse reaction; RASS: Alert and Calm (0) kr3 14:36 Drug: GI Cocktail without - (Maalox Suspension 30 ml, Lidocaine Liquid 2 % 15 kr3 ml) Route: PO; 15:28 Follow up: Response: No adverse reaction kr3 Disposition: 16:14 Co-signature as Attending Physician, Kalia Jimenez MD I reviewed the patient's care rt provided by the Advanced Practice Provider and agree with the diagnosis and treatment plan. Disposition Summary: 11/19/22 15:04 Discharge Ordered Location: Home [facility] Condition: Stable [facility] Diagnosis - Abdominal pain, unspecified [facility] Followup: [facility] - With: Andrea Belle MD - When: 2 - 3 days - Reason: Recheck today's complaints, Continuance of care, Re-evaluation by your physician Followup: [facility] - With: Isaac Deshpande MD - When: 2 - 3 days - Reason: Recheck today's complaints, Continuance of care, Re-evaluation by your physician Discharge Instructions: - Discharge Summary Sheet [facility] - Abdominal Pain, Adult [facility] Forms: - Medication Reconciliation Form [facility] - Thank You Letter [facility] - Antibiotic Education [facility] - Prescription Opioid Use [facility] Prescriptions: - Carafate 1 gram Oral Tablet - take 1 tablet by ORAL route 4 times per day take on an empty stomach, beginning jmm on waking and last dose at bedtime; 100 tablet; Refills: 0, Product Selection Permitted - Pepcid 20 mg Oral Tablet - take 1 tablet by ORAL route every 12 hours for 10 days; 20 tablet; Refills: 0, [facility] Product Selection Permitted - dicyclomine 20 mg Oral Tablet - take 1 tablet by ORAL route 4 times per day As needed; 30 tablet; Refills: 0, [facility] Product Selection Permitted Signatures: Dispatcher [employer] Grover Manuel PA PA jmm Rees, Jessica, RN RN jh5 Radha Stanley RN RN kr3 Kalia Jimenez MD MD rt
--- NOTE | 2022-11-19 15:04 | ER ---
Nurse's Notes [facility] Name: Kelly Marin Age: 42 yrs Sex: Female : 1980 Arrival Date: 11/19/2022 Time: 12:23 Bed 11 Private MD: Lasha Stoddard Diagnosis: Abdominal pain, unspecified Presentation: 11/19 12:49 Chief complaint: Patient states: nauseous and stabbing pain in my back and it's worse bb after I eat and I am belching a bunch. Coronavirus screen: Vaccine status: Patient reports receiving the 2nd dose of the covid vaccine. Client denies travel out of the [place] in the last 14 days. Ebola Screen: Patient negative for fever greater than or equal to 101.5 degrees Fahrenheit, and additional compatible Ebola Virus Disease symptoms Patient denies exposure to infectious person. Patient denies travel to an Ebola-affected area in the 21 days before illness onset. Initial Sepsis Screen: Does the patient meet any 2 criteria? No. Patient's initial sepsis screen is negative. Does the patient have a suspected source of infection? No. Patient's initial sepsis screen is negative. Risk Assessment: Do you want to hurt yourself or someone else? Patient reports no desire to harm self or others. Onset of symptoms was November 17, 2022. 12:49 Method Of Arrival: Ambulatory bb 12:49 Acuity: AHSAN 3 bb Triage Assessment: 12:53 General: Appears uncomfortable, slender, well groomed, well developed, Behavior is jh5 calm, cooperative, appropriate for age. Pain: Complains of pain in back and chest. Musculoskeletal: No deficits noted. 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 - Social history:: Smoking status: Patient denies any tobacco usage or history of. Screenin:26 [facility] ED Fall Risk Assessment (Adult) History of falling in the last 3 months, kr3 including since admission No falls in past 3 months (0 pts) Confusion or Disorientation No (0 pts) Intoxicated or Sedated No (0 pts) Impaired Gait No (0 pts) Mobility Assist Device Used No (0 pt) Altered Elimination No (0 pt) Score/Fall Risk Level 0 - 2 = Low Risk. Abuse screen: Denies threats or abuse. Nutritional screening: No deficits noted. Tuberculosis screening: No symptoms or risk factors identified. Assessment: 14:09 Reassessment: Patient appears in no apparent distress at this time. Patient and/or kr3 family updated on plan of care and expected duration. Pain level reassessed. Patient is alert, oriented x 3, equal unlabored respirations, skin warm/dry/pink. 15:26 Neuro: Level of Consciousness is awake, alert, obeys commands, Oriented to person, kr3 place, time, situation. Vital Signs: 12:49 BP 121 / 97; Pulse 84; Resp 18; Temp 98.4; Pulse Ox 100% ; Weight 68.04 kg; Height 5 bb ft. 5 in. (165.10 cm); Pain 10/10; 14:09 BP 108 / 54; Pulse 80; Resp 17; Pulse Ox 100% on R/A; kr3 15:23 BP 92 / 63; Pulse 77; kr3 12:49 Body Mass Index 24.96 (68.04 kg, 165.10 cm) bb ED Course: 12:23 Patient arrived in ED. mr 12:23 Lasha Stoddard DO is Private Physician. mr 12:25 [facility] Caballero [facility] jmm 12:25 Kalia Jimenez MD is Attending Physician. jmm 12:51 Triage completed. bb 12:53 Arm band placed on right wrist. jh5 12:55 Bed in low position. Call light in reach. Side rails up X 1. kr3 13:11 US Abdomen Limited In Process Unspecified. EDMS 13:14 CBC with Diff Sent. jh5 13:14 CMP Sent. jh5 13:14 Lipase Sent. jh5 13:15 Inserted saline lock: 20 gauge in right antecubital area, using aseptic technique. jh5 13:30 Radha Stanley, RAYSHAWN is Primary Nurse. kr3 13:57 CT Chest For PE Angio In Process Unspecified. EDMS 13:57 CT Abd/Pelvis - IV Contrast Only In Process Unspecified. EDMS 15:03 Andrea Belle MD is Referral Physician. jmm 15:04 Isaac Deshpande MD is Referral Physician. jmm 15:26 No provider procedures requiring assistance completed. IV discontinued, intact, kr3 bleeding controlled, No redness/swelling at site. Pressure dressing applied. Administered Medications: 14:08 Drug: NS 0.9% 1000 ml Route: IV; Rate: 1 bolus; Site: right antecubital; kr3 15:28 Follow up: Response: No adverse reaction; IV Status: Completed infusion; IV Intake: kr3 1000ml 14:08 Drug: Zofran (Ondansetron) 4 mg Route: IVP; Site: right antecubital; kr3 15:28 Follow up: Response: No adverse reaction kr3 14:08 Drug: morphine 4 mg Route: IVP; Infused Over: 4 mins; Site: right antecubital; kr3 15:29 Follow up: Response: No adverse reaction; RASS: Alert and Calm (0) kr3 14:36 Drug: GI Cocktail without - (Maalox Suspension 30 ml, Lidocaine Liquid 2 % 15 kr3 ml) Route: PO; 15:28 Follow up: Response: No adverse reaction kr3 Medication: 13:28 VIS not applicable for this client. jh5 Intake: 15:28 IV: 1000ml; Total: 1000ml. kr3 Outcome: 15:04 Discharge ordered by MD. kory 15:26 Discharged to home ambulatory. kr3 15:26 Condition: stable 15:26 Discharge instructions given to patient, Instructed on discharge instructions, follow up and referral plans. medication usage, Demonstrated understanding of instructions, follow-up care, medications, Prescriptions given X 3. 15:27 Patient left the ED. kr3 Signatures: Dispatcher [employer] EDMS Grover Caballero PA PA jmm Rivera, Mary mr Caroline Garcias, RN RN Ellie Rea RN RN jh5 Radha Stanley RN RN kr3
[2022-11-19 15:51] VITALS: TEMP 98.4; O2SAT 100
[2022-11-19 15:53] VITALS: BP 92/63
== END 2022-11-19 15:27 | disposition home or self-care (01) ==
LOC: ER 12:18
DX: R10.9 Unspecified abdominal pain (principal); R11.0 Nausea
CPT/HCPCS: 85025; 36415; 81025; 81003; 83690; 80053; 71275; 74177; 76705; Q9967; J7030; J2405; 96361; 96374; 96375; 99284